=== PATIENT | male | born 1935 | race Caucasian/White ===

== ENCOUNTER 2018-09-14 18:20 | Inpatient (IN) | payer MEDICARE ==
[~2018-09-14] VITALS: Ht 177.8 cm; Wt 86.3 kg
[~2018-09-14 18:20] MED LIST: ACET325 PO; ACETAMINOPHEN650 MG PO; ALBU90OI6 INH; ALBUIS INH; ASCO500 PO; ASPI325 PO; ASPI81CH PO; BISA10S PR; BISA5EC PO; CEPH500 PO; CHOL10002 PO; Cathflo Activase2 MG IJ; Combigan Eye Dro5 ML LEFTEYE; Crestor20 MG PO; DOCU100 PO; ERGO400 PO; EYE DROP LEFTEYE; FISH1000 PO; HYDR1TAB94 PO; IBUP600 PO; LATA.005SO; LATA.005SO LEFTEYE; LORA.5 PO; NICO21TP TD; Nicoderm Cq1 EAC1 TD; OXYACE5T PO; PANT40 PO; PRESERVISION L1 EACH PO; PROBIOTIC1 EAC1 PO; ROSU5 PO; SERT50 PO; Vision Vitamin1 EACH PO; XARELTO10 MG PO
[2018-09-14 19:06] LABS: BASOPHILS ABSOLUTE AUTO 0.02 K/mm3 (0.00-0.23); BASOPHILS PERCENT AUTO 0 % (0-2); EOSINOPHILS ABSOLUTE AUTO 0.17 K/mm3 (0.00-0.68); EOSINOPHILS PERCENT AUTO 1 % (0-6); Hematocrit 22.6 % (37.0-53.0); IMMATURE GRAN ABSOLUTE AUTO 0.37 K/mm3 (0.00-0.10); IMMATURE GRAN PERCENT AUTO 2 % (0-1); LYMPHOCYTES ABSOLUTE AUTO 1.24 K/mm3 (0.84-5.20); LYMPHOCYTES PERCENT AUTO 6 % (21-46); MONOCYTES ABSOLUTE AUTO 1.28 K/mm3 (0.16-1.47); MONOCYTES PERCENT AUTO 6 % (4-13); Mean Corpuscular HGB 19.5 pg (26.0-34.0); Mean Corpuscular HGB Conc 26.5 g/dL (31.5-36.5); Mean Corpuscular Volume 73 fL (80-100); Mean Platelet Volume 10.1 fL (9.1-12.4); NEUTROPHILS ABSOLUTE AUTO 18.37 K/mm3 (1.96-9.15); NEUTROPHILS PERCENT AUTO 86 % (41-73); Platelet Count 609 K/mm3 (150-400); RDW Coefficient Variation 21.8 % (11.7-14.2); RDW Standard Deviation 56.7 fL (35.1-46.3); Red Blood Cell Count 3.08 M/mm3 (4.30-5.90); White Blood Cell Count 21.45 K/mm3 (4.00-11.30)
[2018-09-14 19:18] LABS: Alanine Aminotransfer (ALT/SGP 19 U/L (12-78); Albumin, Blood 2.9 g/dL (3.4-5.0); Albumin/Globulin Ratio 0.7 (0.8-1.8); Alk Phos 141 U/L (50-136); Anion Gap 9 mmol/L (6-16); Aspartate Aminotrans (AST/SGOT 16 U/L (12-37); Bilirubin, Total 0.3 mg/dL (0.1-1.0); Blood Urea Nitrogen 32 mg/dL (8-24); Bun/Creatinine Ratio 29.9 (12.0-20.0); CO2, Blood 18 mmol/L (21-32); Calcium, Blood 8.7 mg/dL (8.5-10.1); Chloride, Blood 115 mmol/L (98-108); Creatinine, Blood 1.07 mg/dL (0.60-1.20); Globulin, Blood 4.2 g/dL (2.2-4.0); Glomerular Filtration Rate >60 (60-); Glucose, Blood 98 mg/dL (70-99); Potassium, Blood 3.9 mmol/L (3.5-5.5); Sodium, Blood 142 mmol/L (136-145); Total Protein, Blood 7.1 g/dL (6.4-8.2)
[2018-09-14 20:25] LABS: IMMATURE RETIC FRACTION 27.2 % (2.3-16.0); RETIC HGB EQUIVALENT 18.1 pg (28.20-36.60); RETICULOCYTE ABSOLUTE 0.0742 M/mm3 (0.0200-0.1100); RETICULOCYTE COUNT PERCENT 2.67 % (0.50-2.50)
[2018-09-14 20:51] LABS: Percent Saturation 2.4 % (20.0-50.0)
[2018-09-14 22:43] LABS: International Normalized Ratio 1.13; Prothrombin Time Results 11.6 Sec (9.7-11.5)
--- NOTE | 2018-09-15 01:00 | NUR ---
TRANSFUSION FIRST UNIT PRBCS FINISHED 003. FLUSHED WITH 60 UNITS NS. NO SIGNS OF REACTION OR ACUTE CHANGES.
[2018-09-15 05:06] LABS: BASOPHILS ABSOLUTE AUTO 0.03 K/mm3 (0.00-0.23); BASOPHILS PERCENT AUTO 0 % (0-2); EOSINOPHILS ABSOLUTE AUTO 0.19 K/mm3 (0.00-0.68); EOSINOPHILS PERCENT AUTO 1 % (0-6); Hematocrit 24.9 % (37.0-53.0); IMMATURE GRAN ABSOLUTE AUTO 0.27 K/mm3 (0.00-0.10); IMMATURE GRAN PERCENT AUTO 2 % (0-1); LYMPHOCYTES ABSOLUTE AUTO 0.99 K/mm3 (0.84-5.20); LYMPHOCYTES PERCENT AUTO 5 % (21-46); MONOCYTES ABSOLUTE AUTO 0.93 K/mm3 (0.16-1.47); MONOCYTES PERCENT AUTO 5 % (4-13); Mean Corpuscular HGB Conc 28.1 g/dL (31.5-36.5); Mean Corpuscular Volume 75 fL (80-100); Mean Platelet Volume 10.2 fL (9.1-12.4); NEUTROPHILS ABSOLUTE AUTO 16.01 K/mm3 (1.96-9.15); NEUTROPHILS PERCENT AUTO 87 % (41-73); Platelet Count 583 K/mm3 (150-400); RDW Coefficient Variation 21.6 % (11.7-14.2); RDW Standard Deviation 56.8 fL (35.1-46.3); Red Blood Cell Count 3.33 M/mm3 (4.30-5.90); White Blood Cell Count 18.42 K/mm3 (4.00-11.30)
[2018-09-15 05:30] LABS: Anion Gap 9 mmol/L (6-16); Blood Urea Nitrogen 27 mg/dL (8-24); Bun/Creatinine Ratio 28.8 (12.0-20.0); CO2, Blood 19 mmol/L (21-32); Calcium, Blood 8.2 mg/dL (8.5-10.1); Chloride, Blood 116 mmol/L (98-108); Creatinine, Blood 0.94 mg/dL (0.60-1.20); Glomerular Filtration Rate >60 (60-); Glucose, Blood 95 mg/dL (70-99); Potassium, Blood 3.8 mmol/L (3.5-5.5); Sodium, Blood 144 mmol/L (136-145)
--- NOTE | 2018-09-15 06:43 | NUR ---
SHIFT SUMMARY PT WAS A NEW ADMIT DURING THE NIGHT. HE IS A 82 YEAR OLD MALE, A&O X 4. HE WAS ADMITTED FOR PNA AND ANEMIA. PER THE PT, HE FELL WHILE AT HOME ON RICHARD RONIT BECAUSE HE "GOT DIZZY". HE C/O R-SIDE RIB PAIN, FOR WHICH HE WAS MEDICATED X1 WITH PRN NORCO. THE PT WAS ALSO FOUND TO HAVE A LOW HG AT 6.0 WHILE IN THE ER. HE RECEIVED 2 UNITS OF PRBCS DURING THE NIGHT. DURING AM LABS AFTER 2 UNITS WERE TRANSFUSED, HG WAS FOUND TO BE 7.O. THE PT DID REPORT SOME SHORTNESS OF BREATH THAT WAS WORSENED WITH EXERTION, WELL A CONGESTED SOUNDING COUGH. THE PT DID NOT PRODUCE ANY SPUTUM. HE ALSO DID NOT GET OUT OF BED DURING THE NIGHT, AND DID NOT HAVE A BOWEL MOVEMENT. PT WAS ON 2L OF O2 ON ADMISSION, AND WAS TAKEN DOWN TO RA. HE IS SITTING BETWEEN 91-92% ON RA. ALL OTHER VITALS REMAINED STABLE. NO OTHER ACUTE CHANGES IN PT CONDITION NOTED. WILL CONTINUE TO MONITOR AND TREAT PER EMAR UNTIL HAND OFF TO DAY SHIFT.
--- NOTE | 2018-09-15 09:00 | NUR ---
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 SEES SOME. A/O CONCERNED ABOUT IN ICU. DENIES PAIN. H/R REG, NO MURMER NOTED. LUNGS COARSE IN BASES AND WHEEZY THOUGHOUT. ON 1L O2. OFTEN SETS ASIDE. RESP EASYK UNLABORED. BT X4 LAST BM 2 DAYS. VOIDS URINAL. BED IN LOW POSITION, CALL LITE IN REACH, CALLS APPROP. 1 SBA ASST TO BATHROOM
--- NOTE | 2018-09-15 10:03 | NUR ---
ZOLOFT APPEARS DUP ORDER. DR ZAVALA AGREES. SAM D/C
--- NOTE | 2018-09-15 16:21 | NUR ---
PT CAME TO VISIT HIS IN ICU 16. STONE SANDBLASTER STATED THAT HE MAY OR MAY NOT DESAT ON ROOM AIR. PLACED PT ON 1L WHILE VISITING . PT'S RN AWARE.
--- NOTE | 2018-09-15 18:24 | NUR ---
PT PLEASANT TODAY, BECAME ANXIOUS WHEN CONCERNED ABOUT HIS IN ICU. DID TRANPORT HIM TO HER ROOM FOR A HALF HOUR VISIT. DID WELL. SHE IS TO BE TRANSFERRED TO ROOM ON MEDICAL THIS RONIT. THIS WILL HELP HIS ANXIETY. DR ORDERING IRON IV AND 1 UNIT BLOOD. BED IN LOW POSITION,, CALL LITE IN REACH, CALLS APPROP
[2018-09-16 05:02] LABS: BASOPHILS ABSOLUTE AUTO 0.02 K/mm3 (0.00-0.23); BASOPHILS PERCENT AUTO 0 % (0-2); EOSINOPHILS ABSOLUTE AUTO 0.14 K/mm3 (0.00-0.68); EOSINOPHILS PERCENT AUTO 1 % (0-6); Hematocrit 26.4 % (37.0-53.0); Hemoglobin 7.7 g/dL (13.5-17.5); IMMATURE GRAN ABSOLUTE AUTO 0.35 K/mm3 (0.00-0.10); IMMATURE GRAN PERCENT AUTO 2 % (0-1); LYMPHOCYTES ABSOLUTE AUTO 1.25 K/mm3 (0.84-5.20); LYMPHOCYTES PERCENT AUTO 8 % (21-46); MONOCYTES ABSOLUTE AUTO 1.17 K/mm3 (0.16-1.47); MONOCYTES PERCENT AUTO 8 % (4-13); Mean Corpuscular HGB 21.6 pg (26.0-34.0); Mean Corpuscular HGB Conc 29.2 g/dL (31.5-36.5); Mean Corpuscular Volume 74 fL (80-100); Mean Platelet Volume 9.8 fL (9.1-12.4); NEUTROPHILS ABSOLUTE AUTO 12.32 K/mm3 (1.96-9.15); NEUTROPHILS PERCENT AUTO 81 % (41-73); NRBC ABSOLUTE 0.04 K/mm3 (0.00-0.02); NRBC Auto 0.3 /100 WBC (0.0-0.2); Platelet Count 522 K/mm3 (150-400); RDW Coefficient Variation 22.5 % (11.7-14.2); RDW Standard Deviation 60.3 fL (35.1-46.3); Red Blood Cell Count 3.56 M/mm3 (4.30-5.90); White Blood Cell Count 15.25 K/mm3 (4.00-11.30)
[2018-09-16 05:28] LABS: Alanine Aminotransfer (ALT/SGP 17 U/L (12-78); Albumin, Blood 2.5 g/dL (3.4-5.0); Albumin/Globulin Ratio 0.6 (0.8-1.8); Anion Gap 9 mmol/L (6-16); Aspartate Aminotrans (AST/SGOT 16 U/L (12-37); Bilirubin, Total 0.5 mg/dL (0.1-1.0); Blood Urea Nitrogen 18 mg/dL (8-24); Bun/Creatinine Ratio 19.7 (12.0-20.0); CO2, Blood 21 mmol/L (21-32); Calcium, Blood 8.2 mg/dL (8.5-10.1); Chloride, Blood 114 mmol/L (98-108); Creatinine, Blood 0.91 mg/dL (0.60-1.20); Glomerular Filtration Rate >60 (60-); Glucose, Blood 106 mg/dL (70-99); Magnesium, Blood 2.1 mg/dL (1.6-2.4); Potassium, Blood 3.7 mmol/L (3.5-5.5); Sodium, Blood 144 mmol/L (136-145); Total Protein, Blood 6.5 g/dL (6.4-8.2)
[2018-09-16 05:29] LABS: Alk Phos 147 U/L (50-136)
--- NOTE | 2018-09-16 05:50 | NUR ---
SHIFT SUMMARY PT LYING LF, VISITING WITH FAMILY DURING SHIFT REPORT. EYE DROPS BROUGHT IN BY FAMILY FOR MACULAR DEGENERATION. PT ADMITTED FOR PNM R/T FALL AT HOME INJURING RIBS AND NOT BREATHING EFFECTIVELY. PT FOUND WITH ANEMIA AND WAS GIVEN BLOOD PER ORDERS. DR CORTEZ CONSULTED AND SEEN PT AT LAST NIGHT. NO NEW ORDERS FOLLOWED AT THAT TIME. GUIAC ORDER ON CHART, BUT PT HAS NOT HAD BM YET, SINCE ADMISSION. PT RECEIVING IV ABX FOR PNM. LUNGS T/O WITH EXP WHEEZES WITH PC. SPUTUM CX SENT, BUT LATER REPORTED CONTAMINATED BY LAB. NEW CX TO BE OBTAINED. PT RESTING QUIETLY TILL THIS AM, WANTING TO GET UP AND GO FOR A WALK ON HIS OWN. PT WEAK, UNSTEADY AND BLIND, REQUIRING ASSIST. PT TO WALK WITH STAFF WHEN AVAILABLE. CALL LT IN REACH.
--- NOTE | 2018-09-16 06:50 | NUR ---
0630 PT WALKED IN RM AND OUT TO RAO A SHORT DISTANCE, BEFORE GOING BACK TO RM. PT THEN SITTING UP TO EOB AFTER RETURNING. PT REPORTED "THAT SURE FELT GOOD". TOLERATED WELL W/O O2 PER PT REQUEST.
--- NOTE | 2018-09-16 18:42 | NUR ---
PATIENT RECEIVED 1 UNIT OF BLOOD TODAY. FAMILY AT BEDSIDE, FAMILY TOOK PATIENT TO SEE FOR A SHORT TIME. PATIENT ABLE TO TRANSFER WITH A STANDBY ASSIST TO THE WHEELCHAIR OR COMMODE. PLEASANT MOOD AND COOPERATIVE WITH CARE. CALL LIGHT IN REACH
--- NOTE | 2018-09-16 22:00 | NUR ---
BEDSIDE REPORT GIVEN TO MISA SALGADO.
[2018-09-17 04:55] LABS: Hematocrit 28.4 % (37.0-53.0); Hemoglobin 8.3 g/dL (13.5-17.5); Mean Corpuscular HGB Conc 29.2 g/dL (31.5-36.5); Mean Corpuscular Volume 75 fL (80-100); Mean Platelet Volume 9.9 fL (9.1-12.4); NRBC ABSOLUTE 0.02 K/mm3 (0.00-0.02); NRBC Auto 0.2 /100 WBC (0.0-0.2); Platelet Count 484 K/mm3 (150-400); RDW Coefficient Variation 22.9 % (11.7-14.2); RDW Standard Deviation 61.4 fL (35.1-46.3); Red Blood Cell Count 3.77 M/mm3 (4.30-5.90); White Blood Cell Count 10.16 K/mm3 (4.00-11.30)
[2018-09-17 05:21] LABS: Anion Gap 10 mmol/L (6-16); Blood Urea Nitrogen 15 mg/dL (8-24); CO2, Blood 21 mmol/L (21-32); Calcium, Blood 8.3 mg/dL (8.5-10.1); Chloride, Blood 113 mmol/L (98-108); Creatinine, Blood 0.84 mg/dL (0.60-1.20); Glomerular Filtration Rate >60 (60-); Glucose, Blood 101 mg/dL (70-99); Potassium, Blood 3.8 mmol/L (3.5-5.5); Sodium, Blood 144 mmol/L (136-145)
[2018-09-17 05:36] LABS: BAND PERCENT MAN 1 % (0-8); BASOPHILS PERCENT MAN 0 % (0-2); EOSINOPHILS PERCENT MAN 5 % (0-6); LYMPHOCYTES ABSOLUTE MAN 1.11 K/mm3 (0.84-5.20); LYMPHOCYTES PERCENT MAN 11 % (21-46); MONOCYTES ABSOLUTE MAN 0.71 K/mm3 (0.16-1.47); MONOCYTES PERCENT MAN 7 % (4-13); NEUTROPHILS ABSOLUTE MAN 7.82 K/mm3 (1.96-9.15); SEG NEUTROPHILS PERCENT MAN 76 % (41-73); TOTAL CELLS COUNTED 100
--- NOTE | 2018-09-17 05:41 | NUR ---
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 2L O2 NC. SCD'S IN PLACE. LUNGS WHEEZY. HE WAS ABLE TO SLEEP ON AND OFF T/O NIGHT. USES URINAL IN BED. CALL LIGHT IN REACH
[2018-09-17 14:14] LABS: Stool Occult Blood Guaiac 1 Pos (Neg)
--- NOTE | 2018-09-17 19:19 | NUR ---
NO ACUTE CHANGES THIS SHIFT. PATIENT UP TO CHAIR WITH A STANDBY ASSIST. VISITED WITH FAMILY AND THIS AFTERNOON. TYLENOL ORDERED FOR MILD FEVER. PATIENT USING A URINAL TO URINATE. CALL LIGHT IN REACH, WILL CONTINUE TO MONITOR.
--- NOTE | 2018-09-18 04:16 | NUR ---
SHIFT SUMMARY: PT IS ALERT AND ORIENTED. PT IS CALM AND COOPERATIVE WITH CARE. PT CALLS APPROPRIATELY. PT IS A ONE PERSON ASSIST TO THE BATHROOM. PT REPORTS BACK PAIN, GAVE PRN OXYCODONE. PT DENIES NAUSEA, VOMITING, AND SOB. PT SLEPT INTERMITTENTLY THROUGHOUT THE NIGHT. NO ACUTE CHANGES OR COMPLICATIONS THIS SHIFT. WILL REPORT TO DAY NURSE.
[2018-09-18 05:17] LABS: Hematocrit 28.7 % (37.0-53.0); Hemoglobin 8.3 g/dL (13.5-17.5); Mean Corpuscular HGB 22.2 pg (26.0-34.0); Mean Corpuscular HGB Conc 28.9 g/dL (31.5-36.5); Mean Corpuscular Volume 77 fL (80-100); Platelet Count 472 K/mm3 (150-400); RDW Coefficient Variation 24.1 % (11.7-14.2); RDW Standard Deviation 64.9 fL (35.1-46.3); Red Blood Cell Count 3.74 M/mm3 (4.30-5.90); White Blood Cell Count 9.64 K/mm3 (4.00-11.30)
[2018-09-18 05:32] LABS: Alanine Aminotransfer (ALT/SGP 24 U/L (12-78); Albumin, Blood 2.3 g/dL (3.4-5.0); Albumin/Globulin Ratio 0.6 (0.8-1.8); Alk Phos 150 U/L (50-136); Anion Gap 9 mmol/L (6-16); Aspartate Aminotrans (AST/SGOT 25 U/L (12-37); Bilirubin, Total 0.4 mg/dL (0.1-1.0); Blood Urea Nitrogen 15 mg/dL (8-24); Bun/Creatinine Ratio 16.2 (12.0-20.0); CO2, Blood 22 mmol/L (21-32); Calcium, Blood 8.1 mg/dL (8.5-10.1); Chloride, Blood 113 mmol/L (98-108); Creatinine, Blood 0.93 mg/dL (0.60-1.20); Glomerular Filtration Rate >60 (60-); Glucose, Blood 101 mg/dL (70-99); Potassium, Blood 3.8 mmol/L (3.5-5.5); Sodium, Blood 144 mmol/L (136-145); Total Protein, Blood 6.3 g/dL (6.4-8.2)
[2018-09-18 05:46] LABS: BAND PERCENT MAN 1 % (0-8); BASOPHILS PERCENT MAN 0 % (0-2); EOSINOPHILS ABSOLUTE MAN 0.48 K/mm3 (0.00-0.68); EOSINOPHILS PERCENT MAN 5 % (0-6); LYMPHOCYTES ABSOLUTE MAN 2.02 K/mm3 (0.84-5.20); LYMPHOCYTES PERCENT MAN 21 % (21-46); METAMYELOCYTE ABSOLUTE MAN 0.09 K/mm3 (0.00-0.00); METAMYELOCYTE PERCENT MAN 1 % (0-0); MONOCYTES ABSOLUTE MAN 0.86 K/mm3 (0.16-1.47); MONOCYTES PERCENT MAN 9 % (4-13); MYELOCYTE ABSOLUTE MAN 0.09 K/mm3 (0.00-0.00); MYELOCYTE PERCENT MAN 1 % (0-0); NEUTROPHILS ABSOLUTE MAN 6.07 K/mm3 (1.96-9.15); SEG NEUTROPHILS PERCENT MAN 62 % (41-73); TOTAL CELLS COUNTED 100
--- NOTE | 2018-09-18 18:14 | NUR ---
PT IS A/OX3, PLEASANT AND COOPERATIVE, PT IS UP WITH MINIMAL ASSIST. THIS AM THE PTS O2 SATURATION WAS IN THE 80'S PER RT, OXYGEN WAS APPLIED @ 2L/MIN VIA NC, THE PT DENIED ANY PAIN SO FAR THIS SHIFT, DENIED ANY EMISIS OR BLOODY STOOL, THE PT HAS VERY COURSE LUNG SOUNDS AND WHEEZES HEARD T/O, THE PT HAD MULTIPLE VISITORS T/O THE DAY,BED IN THE LOW POSITION, CALL LIGHT IN REACH
--- NOTE | 2018-09-19 04:37 | NUR ---
SHIFT SUMMARY: PT IS ALERT AND ORIENTED. PT IS CALM AND COOPERATIVE WITH CARE. PT CALLS APPROPRIATELY. PT IS A ONE PERSON ASSIST TO THE BATHROOM. PT UNDERWENT SLEEP STUDY. PT DENIES PAIN, NAUSEA, VOMITING, AND SOB. LUNG SOUNDS IMPROVED SINCE PREVIOUS SHIFT. BED IN LOW POSITION, CALL LIGHT WITHIN REACH. WILL REPORT TO DAY NURSE.
[2018-09-19 05:12] LABS: Hematocrit 29.6 % (37.0-53.0); Hemoglobin 8.5 g/dL (13.5-17.5); Mean Corpuscular HGB 22.4 pg (26.0-34.0); Mean Corpuscular HGB Conc 28.7 g/dL (31.5-36.5); Mean Corpuscular Volume 78 fL (80-100); Mean Platelet Volume 9.9 fL (9.1-12.4); Platelet Count 464 K/mm3 (150-400); RDW Coefficient Variation 25.4 % (11.7-14.2); RDW Standard Deviation 68.8 fL (35.1-46.3); White Blood Cell Count 12.16 K/mm3 (4.00-11.30)
[2018-09-19 05:36] LABS: Alanine Aminotransfer (ALT/SGP 34 U/L (12-78); Albumin, Blood 2.3 g/dL (3.4-5.0); Albumin/Globulin Ratio 0.6 (0.8-1.8); Alk Phos 142 U/L (50-136); Anion Gap 8 mmol/L (6-16); Aspartate Aminotrans (AST/SGOT 36 U/L (12-37); Bilirubin, Total 0.4 mg/dL (0.1-1.0); Blood Urea Nitrogen 13 mg/dL (8-24); Bun/Creatinine Ratio 14.3 (12.0-20.0); CO2, Blood 22 mmol/L (21-32); Chloride, Blood 112 mmol/L (98-108); Creatinine, Blood 0.91 mg/dL (0.60-1.20); Glomerular Filtration Rate >60 (60-); Glucose, Blood 96 mg/dL (70-99); Sodium, Blood 142 mmol/L (136-145); Total Protein, Blood 6.3 g/dL (6.4-8.2)
[2018-09-19 05:44] LABS: BAND PERCENT MAN 1 % (0-8); BASOPHILS PERCENT MAN 0 % (0-2); EOSINOPHILS PERCENT MAN 5 % (0-6); LYMPHOCYTES ABSOLUTE MAN 1.33 K/mm3 (0.84-5.20); LYMPHOCYTES PERCENT MAN 11 % (21-46); METAMYELOCYTE ABSOLUTE MAN 0.12 K/mm3 (0.00-0.00); METAMYELOCYTE PERCENT MAN 1 % (0-0); MONOCYTES PERCENT MAN 5 % (4-13); MYELOCYTE ABSOLUTE MAN 0.12 K/mm3 (0.00-0.00); MYELOCYTE PERCENT MAN 1 % (0-0); NEUTROPHILS ABSOLUTE MAN 9.36 K/mm3 (1.96-9.15); SEG NEUTROPHILS PERCENT MAN 76 % (41-73); TOTAL CELLS COUNTED 100
--- NOTE | 2018-09-19 15:59 | NUR ---
PT IS A/OX3, PLEASANT AND COOPERATIVE, THE PT IS UP WITH MINIMAL ASSIST, TODAY THE PT WAS UP AND AMBULATED IN THE RAO USING THE FWW APPROPRITALY, MILDY SOB WITH EXCERTION, O2 ON @ 2L/MIN, PT WAS MEDICATED FOR BACK PAIN X1 HE REQUESTED SO FAR TODAY, MULTIPLE FAMILY IN TO SEE THE PT, CALL LIGHT IN REACH, BED IN THE LOW POSITION
--- NOTE | 2018-09-20 04:06 | NUR ---
SHIFT SUMMARY: PT IS ALERT AND ORIENTED WITH INTERMITTENT, MINOR CONFUSION. PT IS CALM AND COOPERATIVE WITH CARE. PT CALLS APPROPRIATELY. PT IS A ONE PERSON ASSIST TO THE BATHROOM, USES THE URINAL INDEPENDENTLY IN BED. FAMILY IN VISITING AT THE START OF SHIFT. PT DENIES PAIN, NAUSEA, VOMITING, AND SOB. NO ACUTE CHANGES OR COMPLICATIONS OVERNIGHT. WILL REPORT TO DAY NURSE.
[2018-09-20 05:21] LABS: Hematocrit 29.8 % (37.0-53.0); Hemoglobin 8.7 g/dL (13.5-17.5); Mean Corpuscular HGB 22.4 pg (26.0-34.0); Mean Corpuscular HGB Conc 29.2 g/dL (31.5-36.5); Mean Corpuscular Volume 77 fL (80-100); Mean Platelet Volume 10.5 fL (9.1-12.4); Platelet Count 513 K/mm3 (150-400); RDW Coefficient Variation 26.1 % (11.7-14.2); RDW Standard Deviation 69.7 fL (35.1-46.3); Red Blood Cell Count 3.89 M/mm3 (4.30-5.90); White Blood Cell Count 12.15 K/mm3 (4.00-11.30)
[2018-09-20 05:36] LABS: Alanine Aminotransfer (ALT/SGP 45 U/L (12-78); Albumin, Blood 2.3 g/dL (3.4-5.0); Albumin/Globulin Ratio 0.6 (0.8-1.8); Alk Phos 141 U/L (50-136); Anion Gap 7 mmol/L (6-16); Aspartate Aminotrans (AST/SGOT 39 U/L (12-37); Bilirubin, Total 0.5 mg/dL (0.1-1.0); Blood Urea Nitrogen 12 mg/dL (8-24); Bun/Creatinine Ratio 13.2 (12.0-20.0); CO2, Blood 23 mmol/L (21-32); Calcium, Blood 8.1 mg/dL (8.5-10.1); Chloride, Blood 110 mmol/L (98-108); Creatinine, Blood 0.91 mg/dL (0.60-1.20); Globulin, Blood 4.1 g/dL (2.2-4.0); Glomerular Filtration Rate >60 (60-); Glucose, Blood 101 mg/dL (70-99); Sodium, Blood 140 mmol/L (136-145); Total Protein, Blood 6.4 g/dL (6.4-8.2)
[2018-09-20 06:14] LABS: BAND PERCENT MAN 2 % (0-8); BASOPHILS PERCENT MAN 0 % (0-2); EOSINOPHILS ABSOLUTE MAN 0.24 K/mm3 (0.00-0.68); EOSINOPHILS PERCENT MAN 2 % (0-6); LYMPHOCYTES % ATYPICAL MANUAL 1 % (0-0); LYMPHOCYTES ABSOLUTE MAN 1.57 K/mm3 (0.84-5.20); LYMPHOCYTES PERCENT MAN 12 % (21-46); METAMYELOCYTE ABSOLUTE MAN 0.12 K/mm3 (0.00-0.00); METAMYELOCYTE PERCENT MAN 1 % (0-0); MONOCYTES ABSOLUTE MAN 0.48 K/mm3 (0.16-1.47); MONOCYTES PERCENT MAN 4 % (4-13); MYELOCYTE ABSOLUTE MAN 0.24 K/mm3 (0.00-0.00); MYELOCYTE PERCENT MAN 2 % (0-0); NEUTROPHILS ABSOLUTE MAN 9.47 K/mm3 (1.96-9.15); SEG NEUTROPHILS PERCENT MAN 76 % (41-73); TOTAL CELLS COUNTED 100
--- NOTE | 2018-09-20 18:30 | NUR ---
NO ACUTE CHANGES NOTED THIS SHIFT, NO C/O PAIN, SOB NOTED WITH EXERTION/AMBULATION TO BR. WILL CONTINUE TO MONITOR AND REPORT TO ONCOMING RN.
[2018-09-21 04:53] LABS: BASOPHILS ABSOLUTE AUTO 0.03 K/mm3 (0.00-0.23); BASOPHILS PERCENT AUTO 0 % (0-2); EOSINOPHILS PERCENT AUTO 1 % (0-6); Hematocrit 30.5 % (37.0-53.0); Hemoglobin 8.8 g/dL (13.5-17.5); IMMATURE GRAN ABSOLUTE AUTO 0.71 K/mm3 (0.00-0.10); IMMATURE GRAN PERCENT AUTO 6 % (0-1); LYMPHOCYTES ABSOLUTE AUTO 1.43 K/mm3 (0.84-5.20); LYMPHOCYTES PERCENT AUTO 11 % (21-46); MONOCYTES ABSOLUTE AUTO 0.84 K/mm3 (0.16-1.47); MONOCYTES PERCENT AUTO 7 % (4-13); Mean Corpuscular HGB Conc 28.9 g/dL (31.5-36.5); Mean Corpuscular Volume 80 fL (80-100); Mean Platelet Volume 10.4 fL (9.1-12.4); NEUTROPHILS PERCENT AUTO 76 % (41-73); Platelet Count 488 K/mm3 (150-400); RDW Coefficient Variation 26.8 % (11.7-14.2); RDW Standard Deviation 74.2 fL (35.1-46.3); Red Blood Cell Count 3.82 M/mm3 (4.30-5.90); White Blood Cell Count 12.71 K/mm3 (4.00-11.30)
[2018-09-21 05:11] LABS: Alanine Aminotransfer (ALT/SGP 35 U/L (12-78); Albumin, Blood 2.4 g/dL (3.4-5.0); Albumin/Globulin Ratio 0.6 (0.8-1.8); Alk Phos 130 U/L (50-136); Anion Gap 7 mmol/L (6-16); Aspartate Aminotrans (AST/SGOT 27 U/L (12-37); Bilirubin, Total 0.4 mg/dL (0.1-1.0); Blood Urea Nitrogen 14 mg/dL (8-24); Bun/Creatinine Ratio 15.9 (12.0-20.0); CO2, Blood 23 mmol/L (21-32); Calcium, Blood 8.2 mg/dL (8.5-10.1); Chloride, Blood 112 mmol/L (98-108); Creatinine, Blood 0.88 mg/dL (0.60-1.20); Glomerular Filtration Rate >60 (60-); Glucose, Blood 103 mg/dL (70-99); Potassium, Blood 3.9 mmol/L (3.5-5.5); Sodium, Blood 142 mmol/L (136-145); Total Protein, Blood 6.4 g/dL (6.4-8.2)
[2018-09-21 05:16] LABS: BAND PERCENT MAN 2 % (0-8); BASOPHILS PERCENT MAN 0 % (0-2); EOSINOPHILS PERCENT MAN 0 % (0-6); LYMPHOCYTES ABSOLUTE MAN 1.52 K/mm3 (0.84-5.20); LYMPHOCYTES PERCENT MAN 12 % (21-46); MONOCYTES ABSOLUTE MAN 0.63 K/mm3 (0.16-1.47); MONOCYTES PERCENT MAN 5 % (4-13); MYELOCYTE ABSOLUTE MAN 0.12 K/mm3 (0.00-0.00); MYELOCYTE PERCENT MAN 1 % (0-0); NEUTROPHILS ABSOLUTE MAN 10.42 K/mm3 (1.96-9.15); SEG NEUTROPHILS PERCENT MAN 80 % (41-73); TOTAL CELLS COUNTED 100
--- NOTE | 2018-09-21 06:05 | NUR ---
TANK FILLER SUMMARY NO ACUTE CHANGES THIS SHIFT. PT AAOX4 AND COOPERATIVE WITH CARE. PLEASANT. PT LUNGS COARSE/DIM BUT PT DENIES SOB. REMAINS ON 2L O2 VIA NC, SATTING IN LOW 90'S. DR CORTEZ SAW PT AT START OF SHIFT. DR CORTEZ STATED TO PT THAT ONCE PNA IS MORE MANAGED THEY CAN MOVE FORWARD WITH UPPER/LOWER SCOPE. PT DENIES PAIN. VSS, WILL CONTINUE TO MONITOR.
--- NOTE | 2018-09-21 18:12 | NUR ---
NO ACUTE CHANGES NOTED THIS SHIFT, PT ON AND OFF O2, DR CORTEZ WAITING FOR RESP STATUS TO IMPROVE ENOUGH FOR PROCEDURE. PT IS LEGALLY BLIND, NEEDS ASSITANCE FROM RN/COMMUNITY PRODUCT SPECIALIST WITH FILLING OUT HIS MENUS IN THE MORNINGS. WILL CONTINUE TO MONITOR AND REPORT TO ONCOMING RN
--- NOTE | 2018-09-22 06:19 | NUR ---
INTRAOPERATIVE NEURO TECH SUMMARY NO ACUTE CHANGES THIS SHIFT. PT AAOX4 AND COOPERATIVE WITH CARE. STANDBY ASSIST TO BATHROOM, HOWEVER PT MAINLY USES URINAL AT BEDSIDE. PT NOW HAS ALL 4 OF HIS EYE DROPS ORDERED AND RECIEVED THEM AT BEDTIME. REMAINS ON 2L O2 VIA NC, SATTING IN THE 90'S. DENIES PAIN, SOB, AND N/V. VSS, WILL CONTINUE TO MONITOR.
--- NOTE | 2018-09-22 09:33 | NUR ---
ALL AM MEDS GIVEN AT 0900 BY CHRISTAL MCKNIGHT RN. MEDS SCANNED BUT WOULD NOT ALLOW HER TO SUBMIT DUE TO NOT HAVING ESTABLISHED PIN YET. MEDS WERE VERIFIED GIVEN BY THIS RN.
[2018-09-22] MEDS ORDERED: Prednisolone Ace5 ML LEFTEYE (13:31)
[2018-09-22] MEDS ORDERED: DORZOPSO LEFTEYE (13:31)
[2018-09-22] MEDS ORDERED: Istalol2.5 ML LEFTEYE (13:32)
[2018-09-22] MEDS ORDERED: PRESERVISION A1 EACH PO (13:33)
[2018-09-22] MEDS ORDERED: Systane 0.3-0.415 ML BOTHEYES (13:33)
--- NOTE | 2018-09-22 17:02 | NUR ---
SHIFT SUMMARY PATIENT IS ALERT AND ORIENTED X3 AND COOPERATIVE WITH CARE. PATIENT IS A ONE PERSON ASSIST TO THE BATHROOM WITH A FWW, USES URINAL IN BED. PATIENT WAS TITRATED TO RA TODAY. LUNG SOUNDS ARE DIMINISHED AND WHEEZING WITH A PRODUCTIVE COUGH. THE PLAN IS TO TRANSFER THE PATIENT TO [facility] ONCE A BED BECOMES AVAILABLE, HOPEFULLY TOMORROW. PATIENT HAS BEEN USING THE FLUTTER DEVICE AND INSCENTIVE SPIROMETER WITH ASSISTANCE AND ALONE.
[2018-09-23 05:23] LABS: Hematocrit 33.8 % (37.0-53.0); Hemoglobin 9.6 g/dL (13.5-17.5); Mean Corpuscular HGB 22.3 pg (26.0-34.0); Mean Corpuscular HGB Conc 28.4 g/dL (31.5-36.5); Mean Corpuscular Volume 78 fL (80-100); Mean Platelet Volume 10.5 fL (9.1-12.4); Platelet Count 702 K/mm3 (150-400); RDW Coefficient Variation 27.8 % (11.7-14.2); RDW Standard Deviation 76.5 fL (35.1-46.3); Red Blood Cell Count 4.31 M/mm3 (4.30-5.90); White Blood Cell Count 11.95 K/mm3 (4.00-11.30)
[2018-09-23 05:44] LABS: Anion Gap 6 mmol/L (6-16); BAND PERCENT MAN 3 % (0-8); BASOPHILS PERCENT MAN 0 % (0-2); Blood Urea Nitrogen 18 mg/dL (8-24); CO2, Blood 24 mmol/L (21-32); Calcium, Blood 8.2 mg/dL (8.5-10.1); Chloride, Blood 110 mmol/L (98-108); EOSINOPHILS PERCENT MAN 0 % (0-6); Glomerular Filtration Rate >60 (60-); Glucose, Blood 88 mg/dL (70-99); LYMPHOCYTES ABSOLUTE MAN 1.91 K/mm3 (0.84-5.20); LYMPHOCYTES PERCENT MAN 16 % (21-46); MONOCYTES ABSOLUTE MAN 0.83 K/mm3 (0.16-1.47); MONOCYTES PERCENT MAN 7 % (4-13); MYELOCYTE ABSOLUTE MAN 0.11 K/mm3 (0.00-0.00); MYELOCYTE PERCENT MAN 1 % (0-0); NEUTROPHILS ABSOLUTE MAN 9.08 K/mm3 (1.96-9.15); SEG NEUTROPHILS PERCENT MAN 73 % (41-73); Sodium, Blood 140 mmol/L (136-145); TOTAL CELLS COUNTED 100
--- NOTE | 2018-09-23 06:08 | NUR ---
SHIFT SUMMARY PT PLEASANT AND COOPERATIVE. REMAINED ON RA THROUGHOUT THE NIGHT WITH O2 SATS IN THE LOW 90'S. MINIMAL NON PRODUCTIVE COUGH. LUNG SOUNDS DIMINISHED. NO COMPLAINTS OF PAIN. SLEPT WELL THROUGH MOST OF THE NIGHT. NO ACUTE CHANGES. VSS. WILL CONTINUE TO MONITOR.
[2018-09-23] MEDS ORDERED: Ferrous Sulfat325 M2 PO (12:56)
[2018-09-23] MEDS ORDERED: TIOT18 INH (12:56)
[2018-09-23] MEDS ORDERED: OCUVITE EYE +1 EACH PO (12:56)
[2018-09-23] MEDS ORDERED: GUAI600T33 PO (12:56)
[2018-09-23] MEDS ORDERED: OMEPRAZOLE MAGN20 MG PO (12:57)
--- NOTE | 2018-09-23 13:03 | NUR ---
PATIENT AWAITING DISCHARGE TO SNF. POSSIBLY TOMORROW, 09-24-18.
--- NOTE | 2018-09-23 17:52 | NUR ---
SHIFT SUMMARY PATIENT IS COOPERATIVE WITH CARE. HE HAS USED HIS INSCENTIVE SPIROMETER AND FLUTTWER DEVICE TWICE TODAY WITH THE NURSE. THE PLAN IS TO TRANSFER THE PATIENT TO [facility] TOMORROW IF A BED IS AVAILABLE. NO ACUTE CHANGES THIS SHIFT. WILL CONTINUE TO MONITOR PATIENT.
[2018-09-24 05:08] LABS: BASOPHILS ABSOLUTE AUTO 0.03 K/mm3 (0.00-0.23); BASOPHILS PERCENT AUTO 0 % (0-2); EOSINOPHILS ABSOLUTE AUTO 0.16 K/mm3 (0.00-0.68); EOSINOPHILS PERCENT AUTO 1 % (0-6); Hemoglobin 9.4 g/dL (13.5-17.5); IMMATURE GRAN ABSOLUTE AUTO 0.23 K/mm3 (0.00-0.10); IMMATURE GRAN PERCENT AUTO 2 % (0-1); LYMPHOCYTES ABSOLUTE AUTO 1.52 K/mm3 (0.84-5.20); LYMPHOCYTES PERCENT AUTO 13 % (21-46); MONOCYTES ABSOLUTE AUTO 0.95 K/mm3 (0.16-1.47); MONOCYTES PERCENT AUTO 8 % (4-13); Mean Corpuscular HGB 22.2 pg (26.0-34.0); Mean Corpuscular HGB Conc 28.5 g/dL (31.5-36.5); Mean Corpuscular Volume 78 fL (80-100); Mean Platelet Volume 10.7 fL (9.1-12.4); NEUTROPHILS ABSOLUTE AUTO 8.54 K/mm3 (1.96-9.15); NEUTROPHILS PERCENT AUTO 75 % (41-73); Platelet Count 727 K/mm3 (150-400); RDW Coefficient Variation 27.9 % (11.7-14.2); RDW Standard Deviation 75.7 fL (35.1-46.3); Red Blood Cell Count 4.23 M/mm3 (4.30-5.90); White Blood Cell Count 11.43 K/mm3 (4.00-11.30)
--- NOTE | 2018-09-24 06:04 | NUR ---
SHIFT SUMMARY PT IS 82 Y/O, ADMITTED FOR PNEUMONIA. HE IS A&O X 3, THOUGH FORGETFUL AT TIMES, AND ABLE TO AMBULATE SBA WITH A CANE. HE DENIED ANY COMPLAINTS OF PAIN, NAUSEA OR SHORTNESS OF BREATH. VITAL SIGNS STABLE. NO ACUTE CHANGES IN PT CONDITION. WILL CONTINUE TO MONITOR AND TREAT PER EMAR UNTIL HAND OFF TO DAY SHIFT.
--- NOTE | 2018-09-24 15:58 | NUR ---
DISCHARGE THIS RN CALLED REPORT TO M[facility] AT [facility]. PT TRANSFERRED TO WHEELCHAIR VAN VIA WHEELCHAIR BY [facility] MANAGER RECRUITMENT. PT'S BELONGINGS WITH PT. IV REMOVED WITHOUT DIFFICULTY.
== END 2018-09-24 15:10 | DRG 193 ==
LOC: DELPENDDIS → ER 18:20 → MEDS 22:18 → ENPENDDIS 09-23 12:51 → MEDS 09-24 15:10
PROVIDERS: Emergency Medicine; Family Medicine; Hospitalist; ADMIT Internal Medicine
PROC: 30233N1 Transfusion of Nonautologous Red Blood Cells into Peripheral Vein, Percutaneous Approach (ICD-10-PCS; principal; 2018-09-15)
DX: J18.9 Pneumonia, unspecified organism (principal); J96.21 Acute and chronic respiratory failure with hypoxia; S22.43XA Multiple fractures of ribs, bilateral, initial encounter for closed fracture; S22.060A Wedge compression fracture of T7-T8 vertebra, initial encounter for closed fracture; D62 Acute posthemorrhagic anemia; D50.9 Iron deficiency anemia, unspecified; I25.10 Atherosclerotic heart disease of native coronary artery without angina pectoris; E78.5 Hyperlipidemia, unspecified; L40.9 Psoriasis, unspecified; H35.30 Unspecified macular degeneration; Z95.5 Presence of coronary angioplasty implant and graft; F17.210 Nicotine dependence, cigarettes, uncomplicated; W19.XXXA Unspecified fall, initial encounter; Y92.002 Bathroom of unspecified non-institutional (private) residence as the place of occurrence of the external cause; Z79.82 Long term (current) use of aspirin; H54.40 Blindness, one eye, unspecified eye; Z66 Do not resuscitate; J43.9 Emphysema, unspecified; I25.2 Old myocardial infarction; I10 Essential (primary) hypertension; M51.36 Other intervertebral disc degeneration, lumbar region; D47.3 Essential (hemorrhagic) thrombocythemia
CPT/HCPCS: 36415; 36430; 71046; 71260; 74177; 80048; 80053; 82272; 82607; 82728; 82746; 83540; 83550; 83605; 83735; 84100; 85025; 85045; 85610; 85730; 86850; 86900; 86901; 86923; 87040; 87070; 87205; 93005; 93010; 94640; 94667; 94760; 94762; 96365; 96375; 97110; 97116; 97162; 97165; 97530; 99285-25; C9113; J0456; J0696; J2916; J2920; J7030; J7050; P9016; Q9967

== ENCOUNTER 2018-10-15 11:00 | Emergency (ER) | payer MEDICARE ==
[~2018-10-15] VITALS: Ht 177.8 cm; Wt 80.3 kg
[~2018-10-15 11:00] MED LIST changes: +DORZOPSO LEFTEYE; +Ferrous Sulfat325 M2 PO; +GUAI600T33 PO; +Istalol2.5 ML LEFTEYE; +OCUVITE EYE +1 EACH PO; +OMEPRAZOLE MAGN20 MG PO; +PRESERVISION A1 EACH PO; +Prednisolone Ace5 ML LEFTEYE; +Systane 0.3-0.415 ML BOTHEYES; +TIOT18 INH
[2018-10-15 11:25] LABS: BASOPHILS ABSOLUTE AUTO 0.01 K/mm3 (0.00-0.23); BASOPHILS PERCENT AUTO 0 % (0-2); EOSINOPHILS ABSOLUTE AUTO 0.48 K/mm3 (0.00-0.68); EOSINOPHILS PERCENT AUTO 6 % (0-6); Hematocrit 38.4 % (37.0-53.0); Hemoglobin 11.4 g/dL (13.5-17.5); IMMATURE GRAN ABSOLUTE AUTO 0.05 K/mm3 (0.00-0.10); IMMATURE GRAN PERCENT AUTO 1 % (0-1); LYMPHOCYTES ABSOLUTE AUTO 1.79 K/mm3 (0.84-5.20); LYMPHOCYTES PERCENT AUTO 21 % (21-46); MONOCYTES ABSOLUTE AUTO 0.81 K/mm3 (0.16-1.47); MONOCYTES PERCENT AUTO 10 % (4-13); Mean Corpuscular HGB 23.9 pg (26.0-34.0); Mean Corpuscular HGB Conc 29.7 g/dL (31.5-36.5); Mean Corpuscular Volume 81 fL (80-100); Mean Platelet Volume 10.1 fL (9.1-12.4); NEUTROPHILS PERCENT AUTO 63 % (41-73); Platelet Count 525 K/mm3 (150-400); RDW Standard Deviation 74.9 fL (35.1-46.3); Red Blood Cell Count 4.76 M/mm3 (4.30-5.90); White Blood Cell Count 8.44 K/mm3 (4.00-11.30)
[2018-10-15] MEDS ORDERED: TIOT18 INH (11:26)
[2018-10-15] MEDS ORDERED: Xalatan2.5 ML BOTHEYES (11:26)
[2018-10-15] MEDS ORDERED: TIMO10T (11:28)
[2018-10-15] MEDS ORDERED: DORZOLAMIDE 2%10 ML (11:29)
[2018-10-15] MEDS ORDERED: MIDO5 (11:29)
[2018-10-15 11:41] LABS: Anion Gap 7 mmol/L (6-16); Blood Urea Nitrogen 19 mg/dL (8-24); Bun/Creatinine Ratio 18.8 (12.0-20.0); CO2, Blood 23 mmol/L (21-32); Calcium, Blood 8.2 mg/dL (8.5-10.1); Chloride, Blood 111 mmol/L (98-108); Creatinine, Blood 1.01 mg/dL (0.60-1.20); Glomerular Filtration Rate >60 (60-); Glucose, Blood 75 mg/dL (70-99); Potassium, Blood 3.7 mmol/L (3.5-5.5); Sodium, Blood 141 mmol/L (136-145); Troponin I <0.015 ng/mL (0.000-0.040)
== END 2018-10-15 13:21 | disposition home or self-care (01) ==
LOC: ER 11:00
PROVIDERS: Emergency Medicine
DX: I95.1 Orthostatic hypotension (principal); E78.5 Hyperlipidemia, unspecified; I25.10 Atherosclerotic heart disease of native coronary artery without angina pectoris; I25.2 Old myocardial infarction; Z91.040 Latex allergy status; Z88.8 Allergy status to other drugs, medicaments and biological substances; Z79.899 Other long term (current) drug therapy
CPT/HCPCS: 36415; 80048; 84484; 85025; 93005; 93010; 99285-25; J7030

== ENCOUNTER 2018-11-05 10:45 | Day surgery (SDC) | payer MEDICARE ==
[~2018-11-05] VITALS: Ht 177.8 cm; Wt 80.4 kg
[~2018-11-05 10:45] MED LIST changes: +DORZOLAMIDE 2%10 ML; +MIDO5; +TIMO10T; +Xalatan2.5 ML BOTHEYES
[2018-11-05] MEDS ORDERED: METO25ER (12:28)
--- NOTE | 2018-11-05 13:51 | NUR ---
11/05/18 1351 Janett Hallman O2 AT 10L/FACE MASK
== END 2018-11-05 16:20 | disposition home or self-care (01) ==
LOC: ORSCSDS 10:45
DX: D50.9 Iron deficiency anemia, unspecified (principal); K29.70 Gastritis, unspecified, without bleeding; D12.4 Benign neoplasm of descending colon; D12.3 Benign neoplasm of transverse colon; D12.2 Benign neoplasm of ascending colon; I10 Essential (primary) hypertension; I25.10 Atherosclerotic heart disease of native coronary artery without angina pectoris; J44.9 Chronic obstructive pulmonary disease, unspecified; Z79.899 Other long term (current) drug therapy; F17.210 Nicotine dependence, cigarettes, uncomplicated
CPT/HCPCS: 88305; 88342; J2250; J7120

== ENCOUNTER 2019-03-12 13:15 | Inpatient (IN) | payer MEDICARE, OTHER ==
[~2019-03-12] VITALS: Ht 177.8 cm; Wt 82.3 kg
[2019-03-12 14:21] LABS: Source, Urine Voided
[2019-03-12 14:27] LABS: Bilirubin, Urine Neg (Neg); Blood, Urine 3+ (Neg); Glucose Qualitative, Urine Neg (Neg); Ketones, Urine Neg (Neg); Leukocyte Esterase, Urine Neg (Neg); Nitrite, Urine Neg (Neg); Protein, Urine Neg (Neg); Urobilinogen, Urine NORM (Normal)
[2019-03-12 14:41] LABS: Appearance, Urine Clear (Clear); Color, Urine Yellow (P-Yellow)
[2019-03-12 14:42] LABS: Bacteria Rare /hpf; Squamous Epithelial Cells Few /hpf (Few); White Blood Cells, Urine 0-2 /hpf (0-5)
[2019-03-12] MEDS ORDERED: Prednisolone Ace5 ML LEFTEYE (18:46)
--- NOTE | 2019-03-12 19:15 | NUR ---
OPENING NOTE RECEIVED BEDISDE REPORT FROM VICENTA BYNUM AND ASSUMED PT CARE. PT IS RESTING IN BED, VISITING WITH SISTER (PRESTON) AND OTHER GRANDCHILDREN AT THE BEDSIDE. PT DENIES COMPLAINTS AT THIS TIME. LEGALLY BLIND BUT ABLE TO SEE SOME LIGHT AND SHAPES WITH RIGHT EYE. ADMISSION PROCESS COMPLETED, WILL INITIATE ADMIT ORDERS AND PLAN OF CARE. NO ACUTE CONCERNS AT THIS TIME. BED ALARM ON AND BELONGINGS IN REACH.
--- NOTE | 2019-03-12 19:34 | NUR ---
NURSING PCU DAYSHIFT SUMMARY: Assumed care of pt at approx 1830. Arrived from ER via lilia pedersen to unit bed w/SBA. A/O, pleasant, cooperative w/care. 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 Mild general weakness, able to perform all ADL's w/minimal assistance for direction d/t vision. Skin is intact w/no breakdown noted. Denies any pain/discomfort. Tele in place, NSR w/1st degree block, hypertensive at time of arrival, no noted edema. L/S fairly cta t/o, mild dyspnea w/exertion, O2 sat 99% on RA, occ cough. Abd SNT, BT+, voiding w/o difficulty per pt. PIV x2, s/l at time of admission. No s/s of acute distress at arrival. Family at bedside, plan of care discussed, admission hx completed. Report provided to NOC RN. Pt and family denied any questions at that time.
--- NOTE | 2019-03-12 19:37 | NUR ---
PRBC TRANSFUSION PER MD ORDER, STARTED 2ND UNIT OF PRBC'S (VERIFIED WITH ELIZABETH BYNUM). REMAINED AT BEDSIDE FOR FIRST 15 MINS TO MONITOR FOR REACTION. PT TOLERATED WELL WITH NO COMPLAINTS, LAUGHING AND JOKING WITH VISITORS. VSS, NO ACUTE NEEDS. WILL CONTINUE TO MONITOR CLOSELY.
--- NOTE | 2019-03-12 21:30 | NUR ---
MD VISIT DR. TRAN PRESENT IN THE ROOM AND INITIATING CONSULT.
[2019-03-13 03:50] LABS: BASOPHILS ABSOLUTE AUTO 0.01 K/mm3 (0.00-0.23); BASOPHILS PERCENT AUTO 0 % (0-2); EOSINOPHILS ABSOLUTE AUTO 0.13 K/mm3 (0.00-0.68); EOSINOPHILS PERCENT AUTO 1 % (0-6); Hematocrit 27.8 % (37.0-53.0); Hemoglobin 7.5 g/dL (13.5-17.5); IMMATURE GRAN ABSOLUTE AUTO 0.07 K/mm3 (0.00-0.10); IMMATURE GRAN PERCENT AUTO 1 % (0-1); LYMPHOCYTES ABSOLUTE AUTO 0.75 K/mm3 (0.84-5.20); LYMPHOCYTES PERCENT AUTO 8 % (21-46); MONOCYTES ABSOLUTE AUTO 1.32 K/mm3 (0.16-1.47); MONOCYTES PERCENT AUTO 14 % (4-13); Mean Corpuscular HGB 20.9 pg (26.0-34.0); Mean Platelet Volume 10.1 fL (9.1-12.4); NEUTROPHILS ABSOLUTE AUTO 6.93 K/mm3 (1.96-9.15); NEUTROPHILS PERCENT AUTO 75 % (41-73); Platelet Count 517 K/mm3 (150-400); RDW Coefficient Variation 20.1 % (11.7-14.2); RDW Standard Deviation 56.9 fL (35.1-46.3); Red Blood Cell Count 3.58 M/mm3 (4.30-5.90); White Blood Cell Count 9.21 K/mm3 (4.00-11.30)
[2019-03-13 03:57] LABS: Mean Corpuscular Volume 78 fL (80-100)
[2019-03-13 04:09] LABS: Alanine Aminotransfer (ALT/SGP 10 U/L (12-78); Albumin, Blood 3.2 g/dL (3.4-5.0); Albumin/Globulin Ratio 0.8 (0.8-1.8); Alk Phos 86 U/L (50-136); Anion Gap 8 mmol/L (6-16); Aspartate Aminotrans (AST/SGOT 6 U/L (12-37); Bilirubin, Total 0.6 mg/dL (0.1-1.0); Blood Urea Nitrogen 20 mg/dL (8-24); Bun/Creatinine Ratio 22.5 (12.0-20.0); CO2, Blood 17 mmol/L (21-32); Calcium, Blood 8.3 mg/dL (8.5-10.1); Chloride, Blood 120 mmol/L (98-108); Creatinine, Blood 0.89 mg/dL (0.60-1.20); Globulin, Blood 3.8 g/dL (2.2-4.0); Glomerular Filtration Rate >60 (60-); Glucose, Blood 91 mg/dL (70-99); Potassium, Blood 3.2 mmol/L (3.5-5.5); Sodium, Blood 145 mmol/L (136-145)
--- NOTE | 2019-03-13 05:32 | NUR ---
PT HAS RESTED WELL THROUGH SHIFT, DENIES PAIN OR OTHER COMPLAINTS. STATES "I THINK I FEEL A LITTLE MORE STRENGTH THIS MORNING". 2ND UNIT OF PRBC'S COMPLETED AND LABS REVIEWED THIS AM. HEMOGLOBIN AT EXPECTED LEVEL PER DR. TRAN'S CONSULT NOTE. PLAN FOR EGD THIS AM, PT IS AWARE AND EXPRESSES UNDERSTANDING. PROTONIX RUNNING TO 20 G IV IN R HAND CONTINUOUSLY THROUGH THE SHIFT. NO S/SX OF OBVIOUS BLEEDING. WILL PROVIDE BEDSIDE REPORT TO DAY SHIFT RN.
--- NOTE | 2019-03-13 08:18 | NUR ---
NURSING PCU DAYSHIFT: Assumed care of pt at approx 0700. A/O, mildly anxious/irritable this a.m. regarding current NPO status, cooperative w/most aspects of care. Legally blind, mild general weakness, denies numbness/tingling. Denies any pain/discomfort at rest. Skin is fragile w/no breakdown noted. Tele in place, NSR, no c/o CP/pressure, SBP 150's, no noted edema. L/S cta t/o, O2 sat upper 90's on RA, denies dyspnea, occ cough producing stringy sputum. Abd SNT, BT+, voiding w/o difficulty. PIV x2, protonix gtt at 10/hr. No s/s of acute distress this a.m. Day surgery RN at bedside for transport, plan for EGD this a.m. Pt denied any questions/needs. Seen by PMD, will await for pt return from procedure.
--- NOTE | 2019-03-13 08:40 | NUR ---
0825 UP WITH STANDBY ASSIST IN PCU13, TO SÁNCHEZ, GAIT STABLE, History, Chart, Medications and Allergies reviewed before start of procedure.Lungs clear T/O to Auscultation. Patient confirms NPO status and agrees with scheduled surgery. Pre-Op teaching done. Pt verbalizes understanding.
--- NOTE | 2019-03-13 09:24 | NUR ---
03/13/19 0924 Laurent Sanchez PATIENT DETERMINED TO BE ASA APPROPRIATE FOR PROPOFOL SEDATION PRIOR TO START OF PROCEDURE BY . 3-LEAD EKG REVIEWED WITH PHYSICIAN PRIOR TO START OF PROCEDURE.PATIENT CONFIRMS NPO STATUS AND AGREES WITH SCHEDULED PROCEDURE.History, Chart, Medications and Allergies reviewed before start of procedure.MONITOR INTACT WITH CONTINUOUS PULSE OXIMETRY AND INTERMITTENT BP.O2 VIA N/C INTACT THROUGHOUT SEDATION/PROCEDURE.Bite Block Placed
--- NOTE | 2019-03-13 17:34 | NUR ---
NURSING PCU DAYSHIFT SUMMARY: EGD completed this a.m. as ordered, interventions completed. Tolerating post procedure regular diet. Several brown/formed BMs t/o afternoon, no active bleed noted. Pt cleared for discharge tomorrow per GI. K+ and iron administered, 1unit PRBCs infused, pt tolerated well. Pt has been pleasant though intermittently confused and requires redirection, bed alarm set for safety purposes. Family at bedside intermittently t/o the shift, updates provided, questions answered. No s/s of acute distress at this time. Call light in reach, cont to monitor until rpt is given to NOC RN.
[2019-03-13 20:57] LABS: Hematocrit 31.1 % (37.0-53.0); Hemoglobin 8.9 g/dL (13.5-17.5)
[2019-03-14 04:03] LABS: BASOPHILS ABSOLUTE AUTO 0.01 K/mm3 (0.00-0.23); BASOPHILS PERCENT AUTO 0 % (0-2); EOSINOPHILS ABSOLUTE AUTO 0.29 K/mm3 (0.00-0.68); EOSINOPHILS PERCENT AUTO 4 % (0-6); Hematocrit 29.6 % (37.0-53.0); Hemoglobin 8.2 g/dL (13.5-17.5); IMMATURE GRAN ABSOLUTE AUTO 0.08 K/mm3 (0.00-0.10); IMMATURE GRAN PERCENT AUTO 1 % (0-1); LYMPHOCYTES ABSOLUTE AUTO 0.97 K/mm3 (0.84-5.20); LYMPHOCYTES PERCENT AUTO 12 % (21-46); MONOCYTES ABSOLUTE AUTO 1.79 K/mm3 (0.16-1.47); MONOCYTES PERCENT AUTO 22 % (4-13); Mean Corpuscular HGB 21.2 pg (26.0-34.0); Mean Corpuscular HGB Conc 27.7 g/dL (31.5-36.5); Mean Corpuscular Volume 77 fL (80-100); Mean Platelet Volume 10.3 fL (9.1-12.4); NEUTROPHILS PERCENT AUTO 61 % (41-73); Platelet Count 486 K/mm3 (150-400); RDW Coefficient Variation 21.4 % (11.7-14.2); RDW Standard Deviation 59.5 fL (35.1-46.3); Red Blood Cell Count 3.87 M/mm3 (4.30-5.90); White Blood Cell Count 8.04 K/mm3 (4.00-11.30)
[2019-03-14 04:23] LABS: Anion Gap 7 mmol/L (6-16); Blood Urea Nitrogen 19 mg/dL (8-24); Bun/Creatinine Ratio 21.4 (12.0-20.0); CO2, Blood 19 mmol/L (21-32); Calcium, Blood 8.4 mg/dL (8.5-10.1); Chloride, Blood 117 mmol/L (98-108); Creatinine, Blood 0.89 mg/dL (0.60-1.20); Glomerular Filtration Rate >60 (60-); Glucose, Blood 97 mg/dL (70-99); Potassium, Blood 3.5 mmol/L (3.5-5.5); Sodium, Blood 143 mmol/L (136-145)
--- NOTE | 2019-03-14 05:15 | NUR ---
SHIFT SUMMARY PT HAS REMAINED AOX4 THROUGHOUT SHIFT, BUT OCCASIONALLY REQUIRES REORIENTATION UPON WAKING. CONTINUES TO AMBULATE WITH STANDBY ASSIST AND HOME FWW TO RESTROOM WITH MINIMAL DIFFICULTY. VSS. COOPERATIVE WITH CARE. PT CONTINUES TO BE SOMEWHAT IRRITATED THROUGHOUT THE NIGHT, STATING THAT HE DOESN'T LIKE BEING ADMITTED TO THE HOSPITAL. HAS DENIED PAIN AND RESTED THROUGHOUT MUCH OF THE NIGHT. NO OTHER CHANGES FROM INITIAL ASSESSMENT. WILL CONTINUE TO MONITOR AND REPORT TO ONCOMING SHIFT RN. BED IN LOW POSITION, CALL LIGHT IN REACH. BED ALARM SET FOR SAFETY.
--- NOTE | 2019-03-14 08:00 | NUR ---
SHIFT SUMMARY PT ALERT AND ORIENTED. VS STABLE. O2 SATS REMAIN ABOVE 90% ON RA. PT DENIES ANY PAIN. PT DENIES ANY LOOSE STOOL OR BLOOD IN THE STOOL. PT ABLE TO TRANSFER WITH SBA AND PERSONAL WALKER NEEDED. BED ALARM ON. PT IS LEGALLY BLIND. PT ABLE TO USE CALL LIGHT. WILL CONTINUE TO MONITOR CLOSELY.
--- NOTE | 2019-03-14 15:12 | NUR ---
Patient is being prepped for a shower so I a small window to talk with patient but I feel we made good use of the time. 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 Patient shares about the of his , Ines, here at the hospital about a month ago, we talk about and dying and if he will see her again when he dies. Patient stated that he thought he was going to this visit to the hospital but becuase of our great staff he is talking about being discharged. I listen empathically, provide grief support, explore his voodoo beliefs, provide pastoral breastfeeding peer counselor and provide prayer. Patient responds well and shows signs restored aiden.
--- NOTE | 2019-03-14 17:37 | NUR ---
PT'S SON IN TO PICK HIM UP FOR DISCHARGE. DISCHARGE INSTRUCTIONS PROVIDED AND EDUCATION ON NEW MEDICATION. PT EDUCATED TO AVOID NSAIDS AND RISKS OF TAKING THEM. IV REMOVED. PT TAKEN OUT BY WHEELCHAIR.
== END 2019-03-14 17:30 | disposition home health service (06) | DRG 378 ==
LOC: ER 13:15 → PCU 13:16
PROVIDERS: Emergency Medicine; Internal Medicine Gastroenterology; ADMIT Internal Medicine
PROC: 30233N1 Transfusion of Nonautologous Red Blood Cells into Peripheral Vein, Percutaneous Approach (ICD-10-PCS; 2019-03-12)
PROC: 0W3P8ZZ Control Bleeding in Gastrointestinal Tract, Via Natural or Artificial Opening Endoscopic (ICD-10-PCS; principal; 2019-03-13 09:00)
PROC: 3E0G8GC Introduction of Other Therapeutic Substance into Upper GI, Via Natural or Artificial Opening Endoscopic (ICD-10-PCS; 2019-03-13 09:00)
DX: K31.811 Angiodysplasia of stomach and duodenum with bleeding (principal); D62 Acute posthemorrhagic anemia; D50.0 Iron deficiency anemia secondary to blood loss (chronic); E87.6 Hypokalemia; J44.9 Chronic obstructive pulmonary disease, unspecified; H54.8 Legal blindness, as defined in USA; H35.30 Unspecified macular degeneration; Z66 Do not resuscitate; I25.10 Atherosclerotic heart disease of native coronary artery without angina pectoris; I10 Essential (primary) hypertension; I25.2 Old myocardial infarction
CPT/HCPCS: 36415; 36416; 36430; 71045; 80048; 80053; 81001; 83880; 84484; 85014; 85018; 85025; 86850; 86900; 86901; 86923; 88305; 88342; 93005; 93010; 96374; 97162; 97166; 97530; 99285-25; C9113; J0171; J2704; J2916; J3480; J7030; J7050; J7120; P9016

== ENCOUNTER → 2019-03-12 | Outpatient (CLI) | payer MEDICARE, SELFPAY ==
[~2019-03-12] MED LIST changes: +METO25ER PO
[2019-03-12 12:21] LABS: BASOPHILS PERCENT AUTO 0 % (0-2); EOSINOPHILS ABSOLUTE AUTO 0.11 K/mm3 (0.00-0.68); EOSINOPHILS PERCENT AUTO 1 % (0-6); Hematocrit 24.1 % (37.0-53.0); Hemoglobin 6.4 g/dL (13.5-17.5); IMMATURE GRAN ABSOLUTE AUTO 0.11 K/mm3 (0.00-0.10); IMMATURE GRAN PERCENT AUTO 1 % (0-1); LYMPHOCYTES ABSOLUTE AUTO 0.92 K/mm3 (0.84-5.20); LYMPHOCYTES PERCENT AUTO 8 % (21-46); MONOCYTES ABSOLUTE AUTO 1.05 K/mm3 (0.16-1.47); MONOCYTES PERCENT AUTO 10 % (4-13); Mean Corpuscular HGB 19.2 pg (26.0-34.0); Mean Corpuscular HGB Conc 26.6 g/dL (31.5-36.5); Mean Corpuscular Volume 72 fL (80-100); Mean Platelet Volume 10.7 fL (9.1-12.4); NEUTROPHILS ABSOLUTE AUTO 8.88 K/mm3 (1.96-9.15); NEUTROPHILS PERCENT AUTO 80 % (41-73); Platelet Count 601 K/mm3 (150-400); RDW Coefficient Variation 18.8 % (11.7-14.2); Red Blood Cell Count 3.34 M/mm3 (4.30-5.90); White Blood Cell Count 11.07 K/mm3 (4.00-11.30)
[2019-03-12 12:40] LABS: Alanine Aminotransfer (ALT/SGP 15 U/L (12-78); Albumin, Blood 3.4 g/dL (3.4-5.0); Albumin/Globulin Ratio 0.8 (0.8-1.8); Alk Phos 99 U/L (40-126); Anion Gap 14 mmol/L (6-16); Aspartate Aminotrans (AST/SGOT 18 U/L (12-37); Bilirubin, Total 0.3 mg/dL (0.1-1.0); Blood Urea Nitrogen 31 mg/dL (8-24); Bun/Creatinine Ratio 25.8 (12.0-20.0); CO2, Blood 17 mmol/L (21-32); CPK Creatine Kinase 72 U/L (39-308); Calcium, Blood 8.9 mg/dL (8.5-10.1); Chloride, Blood 111 mmol/L (98-108); Free Thyroxine 1.04 ng/dL (0.70-1.60); Globulin, Blood 4.4 g/dL (2.2-4.0); Glomerular Filtration Rate 58 (60-); Glucose, Blood 122 mg/dL (70-99); Sodium, Blood 142 mmol/L (136-145); Thyroid Stimulating Hormone 0.799 uIU/mL (0.360-4.800); Total Protein, Blood 7.8 g/dL (6.4-8.2); Troponin I <0.017 ng/mL (0.000-0.040)
[2019-03-12 13:33] LABS: Percent Saturation 3.5 % (20.0-50.0)
[2019-03-12 13:36] LABS: BAND PERCENT MAN 1 % (0-8); BASOPHILS PERCENT MAN 0 % (0-2); EOSINOPHILS PERCENT MAN 0 % (0-6); LYMPHOCYTES ABSOLUTE MAN 0.77 K/mm3 (0.84-5.20); LYMPHOCYTES PERCENT MAN 7 % (21-46); MONOCYTES ABSOLUTE MAN 0.88 K/mm3 (0.16-1.47); MONOCYTES PERCENT MAN 8 % (4-13); SEG NEUTROPHILS PERCENT MAN 84 % (41-73); TOTAL CELLS COUNTED 100
[2019-03-12 13:38] LABS: International Normalized Ratio 1.11; Prothrombin Time Results 11.7 Sec (9.7-11.5)
== END | disposition home or self-care (01) ==
LOC: LAB EV 12:08 → LAB SHORT 12:08
PROVIDERS: General Practice
DX: R06.00 Dyspnea, unspecified (principal); R79.1 Abnormal coagulation profile; E61.1 Iron deficiency; R53.81 Other malaise
CPT/HCPCS: 80053; 82550; 83540; 83550; 83880; 84439; 84443; 84484; 85025; 85379; 85610; 85730

== ENCOUNTER → 2019-03-26 | Outpatient (CLI) | payer MEDICARE, SELFPAY ==
[2019-03-26 16:24] LABS: BASOPHILS ABSOLUTE AUTO 0.01 K/mm3 (0.00-0.23); BASOPHILS PERCENT AUTO 0 % (0-2); EOSINOPHILS PERCENT AUTO 4 % (0-6); Hematocrit 31.2 % (37.0-53.0); Hemoglobin 8.6 g/dL (13.5-17.5); IMMATURE GRAN ABSOLUTE AUTO 0.13 K/mm3 (0.00-0.10); IMMATURE GRAN PERCENT AUTO 2 % (0-1); LYMPHOCYTES ABSOLUTE AUTO 1.26 K/mm3 (0.84-5.20); LYMPHOCYTES PERCENT AUTO 17 % (21-46); MONOCYTES ABSOLUTE AUTO 0.81 K/mm3 (0.16-1.47); MONOCYTES PERCENT AUTO 11 % (4-13); Mean Corpuscular HGB 22.5 pg (26.0-34.0); Mean Corpuscular HGB Conc 27.6 g/dL (31.5-36.5); Mean Platelet Volume 10.7 fL (9.1-12.4); NEUTROPHILS ABSOLUTE AUTO 4.97 K/mm3 (1.96-9.15); NEUTROPHILS PERCENT AUTO 67 % (41-73); Platelet Count 661 K/mm3 (150-400); RDW Coefficient Variation 31.1 % (11.7-14.2); RDW Standard Deviation 85.3 fL (35.1-46.3); Red Blood Cell Count 3.83 M/mm3 (4.30-5.90); White Blood Cell Count 7.48 K/mm3 (4.00-11.30)
[2019-03-26 16:42] LABS: Albumin, Blood 3.4 g/dL (3.4-5.0); Albumin/Globulin Ratio 0.9 (0.8-1.8); Bilirubin, Total 0.5 mg/dL (0.1-1.0); Bun/Creatinine Ratio 20.2 (12.0-20.0); Calcium, Blood 8.6 mg/dL (8.5-10.1); Creatinine, Blood 1.29 mg/dL (0.60-1.20); Globulin, Blood 3.7 g/dL (2.2-4.0); Potassium, Blood 3.7 mmol/L (3.5-5.5); Thyroid Stimulating Hormone 1.131 uIU/mL (0.360-4.800); Total Protein, Blood 7.1 g/dL (6.4-8.2)
[2019-03-26 17:03] LABS: Mean Corpuscular Volume 82 fL (80-100)
[2019-03-26 18:15] LABS: Percent Saturation 13.9 % (20.0-50.0)
== END | disposition home or self-care (01) ==
LOC: LAB SHORT 16:18 → LAB EV 16:18
PROVIDERS: General Practice
DX: D50.9 Iron deficiency anemia, unspecified (principal); R53.81 Other malaise
CPT/HCPCS: 80053; 83540; 83550; 84443; 85025

== ENCOUNTER 2020-03-08 07:00 | Inpatient (IN) | payer OTHER, MEDICARE ==
[~2020-03-08] VITALS: Ht 177.8 cm; Wt 90.1 kg
[2020-03-08 07:37] LABS: Hematocrit 32.8 % (37.0-53.0); Hemoglobin 10.6 g/dL (13.5-17.5); Mean Corpuscular HGB Conc 32.3 g/dL (31.5-36.5); Mean Corpuscular Volume 102 fL (80-100); Mean Platelet Volume 10.4 fL (9.1-12.4); Platelet Count 217 K/mm3 (150-400); RDW Coefficient Variation 15.4 % (11.7-14.2); RDW Standard Deviation 57.1 fL (35.1-46.3); Red Blood Cell Count 3.21 M/mm3 (4.30-5.90); White Blood Cell Count 4.77 K/mm3 (4.00-11.30)
[2020-03-08 07:57] LABS: BAND PERCENT MAN 18 % (0-8); BASOPHILS PERCENT MAN 0 % (0-2); EOSINOPHILS PERCENT MAN 0 % (0-6); LYMPHOCYTES ABSOLUTE MAN 0.23 K/mm3 (0.84-5.20); LYMPHOCYTES PERCENT MAN 5 % (21-46); MONOCYTES ABSOLUTE MAN 0.38 K/mm3 (0.16-1.47); MONOCYTES PERCENT MAN 8 % (4-13); NEUTROPHILS ABSOLUTE MAN 4.14 K/mm3 (1.96-9.15); SEG NEUTROPHILS PERCENT MAN 69 % (41-73); TOTAL CELLS COUNTED 100
[2020-03-08 07:59] LABS: Albumin, Blood 3.6 g/dL (3.4-5.0); Albumin/Globulin Ratio 1.1 (0.8-1.8); Bilirubin, Total 1.3 mg/dL (0.1-1.0); Calcium, Blood 8.6 mg/dL (8.5-10.1); Creatinine, Blood 2.28 mg/dL (0.60-1.20); Globulin, Blood 3.4 g/dL (2.2-4.0); Potassium, Blood 3.7 mmol/L (3.5-5.5)
[2020-03-08] MEDS ORDERED: FERSU300 PO (08:14)
[2020-03-08] MEDS ORDERED: ACET250 PO (08:14)
[2020-03-08] MEDS ORDERED: MIDO5 PO (08:15)
[2020-03-08] MEDS ORDERED: LATA.005SO BOTHEYES (08:15)
[2020-03-08] MEDS ORDERED: METO25ER PO (08:15)
[2020-03-08] MEDS ORDERED: Fludrocortison0.1 MG PO (08:15)
[2020-03-08] MEDS ORDERED: BETIMOL5 ML LEFTEYE (08:16)
[2020-03-08] MEDS ORDERED: OMEP20ER PO (08:16)
[2020-03-08] MEDS ORDERED: Crestor20 MG PO (08:16)
[2020-03-08] MEDS ORDERED: SERT50 PO (08:16)
[2020-03-08] MEDS ORDERED: PRED PH-MOXI-BRO5 M1 LEFTEYE (08:16)
[2020-03-08] MEDS ORDERED: MONDOXYNE NL100 MG PO (08:17)
[2020-03-08] MEDS ORDERED: SYSTANE 0.3-0.415 ML OP (08:17)
[2020-03-08] MEDS ORDERED: ASPI81CH PO (08:17)
[2020-03-08 08:56] LABS: Source, Urine Clean Catch
[2020-03-08 08:58] LABS: Bilirubin, Urine Neg (Neg); Blood, Urine 5+ (Neg); Glucose Qualitative, Urine Neg (Neg); Ketones, Urine Neg (Neg); Leukocyte Esterase, Urine 3+ (Neg); Nitrite, Urine Neg (Neg); Protein, Urine 3+ (Neg); Specific Gravity, Urine 1.015 (1.003-1.022); Urobilinogen, Urine NORM (Normal)
[2020-03-08 09:08] LABS: Appearance, Urine Hazy (Clear); Color, Urine Yellow (P-Yellow)
[2020-03-08 09:09] LABS: Bacteria Many /hpf; Squamous Epithelial Cells Rare /hpf (Few); White Blood Cells, Urine 50-100 /hpf (0-5)
--- NOTE | 2020-03-08 11:11 | NUR ---
PT ARRIVED TO PCU 10 VIA GURNEY FROM ED, REPORT FROM RN, PT AWAKE, MOANING, STATES HIS LOW BACK HURTS, ALERT, CONFUSED, COOPERATIVE WITH CARE, FOLLOWS COMMANDS WELL, LUNGS ARE CLEAR T/O, HAS RAPID RESP, NO COUGH NOTED, SATS IN THE HIGH 80'S, PLACED HIM ON 2 LITERS O2 VIA N/C, HRR, TELE IN PLACE RUNNING SR PER MONITOR, SEE STRIP, NO EDEMA NOTED, PPP+2, CAP REFILL <3SEC, VS STABLE, AFEBRILE, IV SITE CLEAR AND PATENT, BTX4, ABD FLAT SOFT NONTENDER, VOIDS VIA URINAL, BUT DOES HAVE PULL UPS IN PLACE, SKIN C/W/D, ASIA FLETCHER, ORIENTED TO ROOM LAYOUT AND CALL SYSTEM, CALL LIGHT IN REACH.
--- NOTE | 2020-03-08 11:38 | NUR ---
cALL TO dR. WOLFE TO LET HIM KNOW THAT THE PT IS IN PCU 10. THE PT'S SON MADELINE IS AT THE BEDSIDE. DR WOLFE SAID THAT HE WILL TRY TO BE DOWN TO SEE THE PT IN ABOUT 30 MINUTES.
--- NOTE | 2020-03-08 16:33 | NUR ---
Call to Dr. Jhaveri regarding hypotension. New orders recevied.
--- NOTE | 2020-03-08 18:21 | NUR ---
PT B/P HAS DROPPED DOWN TO THE 70'S, GAVE A 500ML BOLUS PER DR. WOLFE, HE IS CURRENTLY IN THE 80'S, NOTIFIED, AND STARTED HIM ON MIDIDRINE, AND FLORENEF. THIS WAS GIVEN, HE IS STILL INFUSING FLUIDS AT 200MLS/HR, AND STARTED HIM ON VANCO, HE IS IN GOOD HUMOR, NO COMPLAINTS, ATE A BIT OF DINNER, HAD A BM, GUIAC SENT STOOL APPEARED DARK, CALL LIGHT IN REACH, NO FURTHER CHANGES.
--- NOTE | 2020-03-09 01:31 | NUR ---
ASSUMED CARE OF PATIENT AT APPROXIMATELY 1910 FROM MIRIAN Hester RN. PATIENT ALERT AND ORIENTED TO SELF, AND LOCATION. PATIENT HARD OF HEARING AND BLIND. PATIENT CONFUSED; USED CALL LIGHT TO WIPE EYES AFTER USING TISSUE; MAKES ODD STATEMENTS AT TIMES. PATIENT REPORTS HE HAS PAIN IN HIS BACK WITH MOVEMENT AFTER HIS FALL AT HOME; MULTIPLE BRUISES NOTED. PATIENT DENIES NUMBNESS, TINGLING, DIZZINESS OR NAUSEA. NSR ON TELE; OXYGEN SATURATION ABOVE 90% ON ROOM AIR. BLOOD PRESSURE IMPROVED T/O SHIFT. CALL PLACED TO KELSEY RAMOS FOR MAINTENANCE FLUIDS AFTER BOLUS WAS COMPLETE; ORDERS RECIEVED. FIRST BLOOD CULTURES BACK GROWING GRAM NEG RODS; PHARMACY CALLED. PATIENT INCONTINENT OF LOOSE STOOL; SAMPLE SENT PER ORDER; USES URINAL IN BED. PATIENT CURRENTLY RESTING IN BED; CALL LIGHT IN REACH; BED IN LOWEST POSISTION; BED ALARM ON; WILL CONTINUE TO MONITOR AND ASSESS UNTIL END OF SHIFT.
[2020-03-09 04:32] LABS: Hematocrit 29.4 % (37.0-53.0); Hemoglobin 9.3 g/dL (13.5-17.5); Mean Corpuscular HGB Conc 31.6 g/dL (31.5-36.5); Mean Corpuscular Volume 104 fL (80-100); Mean Platelet Volume 11.4 fL (9.1-12.4); Platelet Count 156 K/mm3 (150-400); RDW Coefficient Variation 15.8 % (11.7-14.2); RDW Standard Deviation 60.3 fL (35.1-46.3); Red Blood Cell Count 2.82 M/mm3 (4.30-5.90); White Blood Cell Count 2.94 K/mm3 (4.00-11.30)
[2020-03-09 04:50] LABS: Anion Gap 11 mmol/L (6-16); Blood Urea Nitrogen 52 mg/dL (8-24); Bun/Creatinine Ratio 23.9 (12.0-20.0); CO2, Blood 15 mmol/L (21-32); Calcium, Blood 7.6 mg/dL (8.5-10.1); Chloride, Blood 116 mmol/L (98-108); Creatinine, Blood 2.18 mg/dL (0.60-1.20); Glomerular Filtration Rate 31 (60-); Glucose, Blood 102 mg/dL (70-99); Potassium, Blood 3.6 mmol/L (3.5-5.5); Sodium, Blood 142 mmol/L (136-145); Vancomycin, Random 9.3 ug/mL
[2020-03-09 05:48] LABS: BAND PERCENT MAN 10 % (0-8); BASOPHILS PERCENT MAN 0 % (0-2); EOSINOPHILS ABSOLUTE MAN 0.02 K/mm3 (0.00-0.68); EOSINOPHILS PERCENT MAN 1 % (0-6); LYMPHOCYTES ABSOLUTE MAN 0.05 K/mm3 (0.84-5.20); LYMPHOCYTES PERCENT MAN 2 % (21-46); METAMYELOCYTE ABSOLUTE MAN 0.02 K/mm3 (0.00-0.00); METAMYELOCYTE PERCENT MAN 1 % (0-0); MONOCYTES ABSOLUTE MAN 0.23 K/mm3 (0.16-1.47); MONOCYTES PERCENT MAN 8 % (4-13); NEUTROPHILS ABSOLUTE MAN 2.58 K/mm3 (1.96-9.15); SEG NEUTROPHILS PERCENT MAN 78 % (41-73); TOTAL CELLS COUNTED 100
--- NOTE | 2020-03-09 05:58 | NUR ---
UPDATED HOSPITALIST ON POSISTIVE BLOOD CULTURES; COVERED BY CURRENT ABX. PATIENT CALLED OUT INSTEAD OF USING CALL LIGHT. PATIENT SLEPT ABOUT EIGHT HOURS LAST NIGHT. VSS. WILL CONTINUE TO MONITOR AND ASSESS UNTIL END OF SHIFT.
--- NOTE | 2020-03-09 07:33 | NUR ---
PT LAYING IN BED AWAKE ALERT TO SELF, CALLS OUT WHEN HE NEEDS SOMETHING, IS BLIND IN LEFT EYE, PLEASANT AND COOPERTIVE WITH CARE, FOLLOWS COMMANDS WELL, REPORTS PAIN TO LOW BACK FROM A FALL AT HOME, OTHERWISE HAD A GOOD NIGHT, LUNGS ARE CLEAR T/O, RESP EVEN AND UNLABORED, NO COUGH NOTED, HRR, TELE IN PLACE RUNNING SR PER MONITOR, SEE STRIP, NO EDEMA NOTED, MAYBE A TRACE BIT OF PUFFINESS AROUND EYES, PPP+1, CAP REFILL <3SEC, VS STABLE, AFEBRILE, IV SITES ARE CLEAR AND PATENT, INFUSING FLUIDS ORDERED, BTX4, ATTENDS IN PLACE BUT USES A URINAL WITH ASSIST, SKIN C/W/D, JUSTINE, CALL LIGHT IN REACH WITH A PAD SO HE CAN FEEL IT TO CALL.
[2020-03-09 13:57] LABS: Stool Occult Blood Guaiac 1 Pos (Neg); Stool Occult Blood Guaiac 2 Pos (Neg)
[2020-03-09 13:58] LABS: Stool Occult Blood Guaiac 3 Pos (Neg)
--- NOTE | 2020-03-09 18:50 | NUR ---
pt continues to be confused, but has sat up in a recliner most of the day, he doesn't use the call system, but calls out, that is usually when he needs to void, tab alarm on him at all times, and bed alarm when he is in bed, call light in reach.
[2020-03-10 04:23] LABS: Hematocrit 26.6 % (37.0-53.0); Hemoglobin 8.5 g/dL (13.5-17.5); Mean Corpuscular HGB 32.7 pg (26.0-34.0); Mean Corpuscular Volume 102 fL (80-100); Mean Platelet Volume 11.2 fL (9.1-12.4); Platelet Count 142 K/mm3 (150-400); RDW Coefficient Variation 15.9 % (11.7-14.2); RDW Standard Deviation 59.6 fL (35.1-46.3); White Blood Cell Count 2.31 K/mm3 (4.00-11.30)
--- NOTE | 2020-03-10 04:35 | NUR ---
HOSPITALIST NOTIFIED OF NEW ONSET A/FIB WITH HR IN 130'S. PT C/O CHEST PAIN AT THIS TIME. NEW ORDER FOR IV METOPROLOL NOW.
[2020-03-10 04:40] LABS: Anion Gap 11 mmol/L (6-16); Blood Urea Nitrogen 60 mg/dL (8-24); Bun/Creatinine Ratio 26.2 (12.0-20.0); CO2, Blood 16 mmol/L (21-32); Calcium, Blood 7.5 mg/dL (8.5-10.1); Chloride, Blood 117 mmol/L (98-108); Creatinine, Blood 2.29 mg/dL (0.60-1.20); Glomerular Filtration Rate 29 (60-); Glucose, Blood 107 mg/dL (70-99); Potassium, Blood 3.2 mmol/L (3.5-5.5); Sodium, Blood 144 mmol/L (136-145); Vancomycin, Random 12.8 ug/mL
[2020-03-10 05:06] LABS: BAND PERCENT MAN 21 % (0-8); BASOPHILS PERCENT MAN 0 % (0-2); EOSINOPHILS ABSOLUTE MAN 0.02 K/mm3 (0.00-0.68); EOSINOPHILS PERCENT MAN 1 % (0-6); LYMPHOCYTES ABSOLUTE MAN 0.09 K/mm3 (0.84-5.20); LYMPHOCYTES PERCENT MAN 4 % (21-46); METAMYELOCYTE ABSOLUTE MAN 0.06 K/mm3 (0.00-0.00); METAMYELOCYTE PERCENT MAN 3 % (0-0); MONOCYTES ABSOLUTE MAN 0.18 K/mm3 (0.16-1.47); MONOCYTES PERCENT MAN 8 % (4-13); MYELOCYTE ABSOLUTE MAN 0.02 K/mm3 (0.00-0.00); MYELOCYTE PERCENT MAN 1 % (0-0); NEUTROPHILS ABSOLUTE MAN 1.91 K/mm3 (1.96-9.15); SEG NEUTROPHILS PERCENT MAN 62 % (41-73); TOTAL CELLS COUNTED 100
--- NOTE | 2020-03-10 06:03 | NUR ---
SHIFT SUMMARY: PT ALERT TO SELF AND SURROUNDINGS. CALM AND COOPERATIVE WITH CARE. PT ABLE TO MAKE HIS NEEDS KNOWN AND ASKS FOR ASSISTANCE WITH URINAL. DRINKING SMALL SIPS OF WATER THROUGHOUT SHIFT. PT OUT OF BED TO BSC WITH 1-2 ASSIST AND FWW. PT WEAK AND DYSPNEIC WITH ACTIVITY. RR BETWEEN 28-32. O2 STABLE ON RA. PT WENT INTO NEW ONSET A/FIB THIS MORNING WITH C/O CHEST PAIN. PT GIVEN IV METOPROLOL PER ORDERS. WILL CTM HR AND RHYTHM. PT DENIES CHEST PAIN AT THIS TIME. RESTING WITH HOB ELEVATED WITH CALL LIGHT IN REACH. BED ALARM ON FOR SAFETY.
--- NOTE | 2020-03-10 06:26 | NUR ---
DISCUSSED WITH PHARMACIST REGARDING INEFFECTIVE TREATMENT OF VANCOMYCIN FOR GRAM NEGATIVE SILVESTRE BACTERIA FOUND IN URINE. DR FRANCO NOTIFIED. DR FRANCO ADVISING TO HOLD THE VANCOMYCIN PT IS ALREADY ON ROCEPHIN AND DOXYCYCLINE.
[2020-03-10 10:04] LABS: Magnesium, Blood 1.8 mg/dL (1.6-2.4)
[2020-03-10 10:06] LABS: Thyroid Stimulating Hormone 0.616 uIU/mL (0.360-4.800)
--- NOTE | 2020-03-10 10:58 | NUR ---
Echocardiogram completed.
[2020-03-10 11:30] LABS: Magnesium, Blood 1.8 mg/dL (1.6-2.4)
[2020-03-10 11:32] LABS: Potassium, Blood 3.3 mmol/L (3.5-5.5); Troponin I 0.175 ng/mL (0.000-0.040)
--- NOTE | 2020-03-10 18:05 | NUR ---
SHIFT SUMMARY PT A&Ox2; CALM AND COOPERTIAVE WITH CARE. PT RESTING IN BED THIS AM. REPOSITION FOR COMFORT. PT DENIES PAIN, CHEST PAIN/PRESSURE, AND NAUSEA. THIS AM, PT HR 120-140; AFIB PER TELE; BP HYPOTENSIVE; GIVEN CARDIZEM IV PUSH AND GTT; CONVERTED AT APPROX 1020 TO SINUS 70-80'S. PT SOB AT REST T/O SHIFT, LABORED BREATHING THIS AM, DECREASED THIS AM ONCE CONVERTED TO SINUS; PT REMAINS TACHYPNIC T/O SHIFT. DR FRANCO UPDATED ON PT CONDITION T/O SHIFT. DR GHOSH AND DR FELIZ CONSULTED DURING SHIFT. OTHER VSS. NO OTHER ACUTE CHANGES. WILL CONTINUE TO MONITOR UNTIL REPORT GIVEN TO ONCOMING RN.
--- NOTE | 2020-03-10 22:30 | NUR ---
UPDATE PT A&O TO SELF; PT HAS URINARY FREQUENCY; ATTENDS IN PLACE & URINAL PROVIDED; BLADDER SCAN PERFORMED PER ORDERS; NOTIFIED OF BLADDER SCAN OF 364 ML; CALL LIGHT IN REACH; BED IN LOWEST POSITION; BED ALARM ON.
[2020-03-11 04:22] LABS: Hematocrit 25.9 % (37.0-53.0); Hemoglobin 8.3 g/dL (13.5-17.5); Mean Corpuscular HGB 32.3 pg (26.0-34.0); Mean Corpuscular Volume 101 fL (80-100); Mean Platelet Volume 11.4 fL (9.1-12.4); Platelet Count 136 K/mm3 (150-400); Red Blood Cell Count 2.57 M/mm3 (4.30-5.90); White Blood Cell Count 1.85 K/mm3 (4.00-11.30)
[2020-03-11 04:35] LABS: Albumin, Blood 2.2 g/dL (3.4-5.0); Anion Gap 8 mmol/L (6-16); Blood Urea Nitrogen 60 mg/dL (8-24); Bun/Creatinine Ratio 30.6 (12.0-20.0); CO2, Blood 20 mmol/L (21-32); Calcium, Blood 7.6 mg/dL (8.5-10.1); Chloride, Blood 116 mmol/L (98-108); Creatinine, Blood 1.96 mg/dL (0.60-1.20); Glomerular Filtration Rate 35 (60-); Glucose, Blood 119 mg/dL (70-99); Phosphorus, Blood 2.6 mg/dL (2.5-4.9); Potassium, Blood 3.1 mmol/L (3.5-5.5); Sodium, Blood 144 mmol/L (136-145)
[2020-03-11 05:45] LABS: BAND PERCENT MAN 7 % (0-8); BASOPHILS PERCENT MAN 0 % (0-2); EOSINOPHILS PERCENT MAN 0 % (0-6); LYMPHOCYTES ABSOLUTE MAN 0.14 K/mm3 (0.84-5.20); LYMPHOCYTES PERCENT MAN 8 % (21-46); MONOCYTES ABSOLUTE MAN 0.07 K/mm3 (0.16-1.47); MONOCYTES PERCENT MAN 4 % (4-13); NEUTROPHILS ABSOLUTE MAN 1.62 K/mm3 (1.96-9.15); SEG NEUTROPHILS PERCENT MAN 81 % (41-73); TOTAL CELLS COUNTED 100
--- NOTE | 2020-03-11 05:50 | NUR ---
SHIFT SUMMARY PT A&O X 2; COMPLIANT W/ CARE; ANSWERS APPROPRIATELY; VSS; NSR NOTED ON TELE; HR 70'S - 80'S; DENIES CHEST PAIN; O2 SATS >93 ON RA; DYSPNEA W/ ATTENDS CHANGE & REPOSITIONING; NO ACUTE CHANGES; CALL LIGHT IN REACH; BED IN LOWEST POSITION; WILL CONTINUE TO MONITOR UNTIL HAND OFF TO DAY SHIFT RN.
--- NOTE | 2020-03-11 19:40 | NUR ---
ASSUMED CARE APPROXIMATELY 192 FROM MISA NOEL; FAMILY AT BEDSIDE; PT APPEARS MORE ALERT FROM PREVIOUS SHIFT; PT MAKING NEEDS KNOWN; ASSISTANCE W/URINAL GIVEN; PT HAS FREQUENCY & URGENCY W/ URINATION; L SCROTAL SWELLING NOTED, DAY SHIFT RN STATED WAS PRESENT EARLIER IN DAY; PT DENIES CHEST PAIN; VSS; CALL LIGHT IN REACH; BED IN LOWEST POSITION; BED ALARM ON
--- NOTE | 2020-03-11 19:53 | NUR ---
SHIFT SUMMARY PT A&Ox2; CALM AND COOPERTIAVE WITH CARE. PT RESTING IN BED THIS AM. REPOSITION FOR COMFORT. PT DENIES PAIN, CHEST PAIN/PRESSURE, AND NAUSEA. PT SOB WITH MOVEMENT AND WHEN PT YELLING OUT FOR ASSISTANCE. SPO2 >90% T/O SHIFT. PT HAD NM STUDY THIS AM. PT RECEIVING IV ANTIBIOTICS AND KCL. PER TELE SINUS 70-80'S T/O SHIFT. OTHER VSS. NO OTHER ACUTE CHANGES NOTED DURING SHIFT. REPORT GIVEN TO ONCOMING RN.
[2020-03-12 04:09] LABS: BASOPHILS ABSOLUTE AUTO 0.01 K/mm3 (0.00-0.23); BASOPHILS PERCENT AUTO 1 % (0-2); EOSINOPHILS ABSOLUTE AUTO 0.02 K/mm3 (0.00-0.68); EOSINOPHILS PERCENT AUTO 2 % (0-6); Hematocrit 24.5 % (37.0-53.0); Hemoglobin 7.8 g/dL (13.5-17.5); IMMATURE GRAN ABSOLUTE AUTO 0.02 K/mm3 (0.00-0.10); IMMATURE GRAN PERCENT AUTO 2 % (0-1); LYMPHOCYTES ABSOLUTE AUTO 0.09 K/mm3 (0.84-5.20); LYMPHOCYTES PERCENT AUTO 7 % (21-46); MONOCYTES ABSOLUTE AUTO 0.05 K/mm3 (0.16-1.47); MONOCYTES PERCENT AUTO 4 % (4-13); Mean Corpuscular HGB 32.5 pg (26.0-34.0); Mean Corpuscular HGB Conc 31.8 g/dL (31.5-36.5); Mean Corpuscular Volume 102 fL (80-100); Mean Platelet Volume 11.6 fL (9.1-12.4); NEUTROPHILS PERCENT AUTO 85 % (41-73); Platelet Count 122 K/mm3 (150-400); RDW Coefficient Variation 15.9 % (11.7-14.2); RDW Standard Deviation 60.1 fL (35.1-46.3); White Blood Cell Count 1.29 K/mm3 (4.00-11.30)
[2020-03-12 04:28] LABS: Anion Gap 9 mmol/L (6-16); Blood Urea Nitrogen 45 mg/dL (8-24); Bun/Creatinine Ratio 26.9 (12.0-20.0); CO2, Blood 23 mmol/L (21-32); Calcium, Blood 7.6 mg/dL (8.5-10.1); Chloride, Blood 111 mmol/L (98-108); Creatinine, Blood 1.67 mg/dL (0.60-1.20); Glomerular Filtration Rate 42 (60-); Glucose, Blood 102 mg/dL (70-99); Magnesium, Blood 1.8 mg/dL (1.6-2.4); Potassium, Blood 2.9 mmol/L (3.5-5.5); Sodium, Blood 143 mmol/L (136-145)
--- NOTE | 2020-03-12 05:21 | NUR ---
SHIFT SUMMARY PT A&O X 3; DENIES CHEST PAIN; VSS; NSR NOTED ON TELE DURATION OF SHIFT; O2 SATS >93 ON RA; PT MORE INVOLVED W/ CARE THIS SHIFT; NO ACUTE CHANGES; PT CURRENTLY SLEEPING; CALL LIGHT IN REACH; BED IN LOWEST POSITION; WILL CONTINUE TO MONITOR UNTIL HAND OFF TO DAY SHIFT RN.
--- NOTE | 2020-03-12 07:16 | NUR ---
UPDATE TO SEE PT; AM LAB POTASSIUM 2.9; NEW ORDERS GIVEN
--- NOTE | 2020-03-12 09:13 | NUR ---
ASSUMED CARE AT 0700, REPORT FROM MISA FUENTES. RESTING SUPINE IN BED. A/A/OX4 AT THIS TIME. STATES IS FEELING MUCH BETTER. IV POTASSIUM INFUSING, WEARING ATTENDS FOR INCONTINANCE, LEFT TESTICLE SWOLLEN, UNCHANGED FROM YESTERDAY PER ALFREDO. WILL CONTINUE TO MONITOR.
--- NOTE | 2020-03-12 09:33 | NUR ---
XFER SUMMARY: Rpt provided to accepting RN. Pt will xfer accompanied by PCT, belongings/meds packed for xfer to medical unit.
--- NOTE | 2020-03-12 10:29 | NUR ---
PATIENT TRANSFERRED FROM PCU 10 TO ROOM 326. REPORT RECEIVED FROM MISA YADAV. VSS, ON RA. ORIENTED TO ROOM AND USE OF CALL LIGHT. PATIENT DENIES ANY PAIN. SR ON TELE. FALL PRECAUTIONS IN PLACE PER UNIT PROTOCOL.
--- NOTE | 2020-03-12 17:57 | NUR ---
PATIENT A/OX4, UP WITH FWW AND 1 ASSIST TO BSC/CHAIR. PT/OT ORDERED AND ARE RECOMMENDING SNF AT D/C. SON WOULD LIKE [facility]. VSS, ON RA. NSR ON TELE IN THE 60'S, DENIES ANY CP OR SOB. PATIENT NEEDS ENCOURAGEMET TO GET UP TO CHAIR FOR MEALS AND APPETITE IS POOR. SLEPT THE MAJORITY OF THIS SHIFT. K+ 2.9 THIS AM AND WAS REPLACED. L EYE BLINDNESS, NEEDS ASSISTANCE SETTING UP TRAY. 2 IV SITES TO L HAND AND L AC WNL. NS @50ML/HR INFUSING. PATIENT DOES NOT USE CALL LIGHT, BUT WILL HOLLER OUT FOR HELP. FALL PRECAUTIONS PER UNIT PROTOCOL.
--- NOTE | 2020-03-13 04:57 | NUR ---
SHIFT SUMMARY AOX4. VSS. TELE RUNNING NSR HR 79. BLIND IN L EYE. DENIES PAIN OR N/V. REPORTS HE "ALWAYS" FEELS SOB, HAS OCCASIONAL MOIST SOUNDING COUGH, STATES SMALL AMOUNT "PHLEGM." LUNGS SOUND DIM T/O. HAS URGENCY & FREQUENCY W/VOIDING, VOIDED ROUGHLY 10 TIMES W/50-100ML EACH VOID, POST VOID BLADDER SCAN SHOWED 20ML IN BLADDER. AWAITING PLACEMENT. CALL LIGHT IN REACH, HOWEVER PT YELLS OUT WHEN HE NEEDS ASSISTANCE. WCTM.
[2020-03-13 05:35] LABS: Hematocrit 23.6 % (37.0-53.0); Hemoglobin 7.6 g/dL (13.5-17.5)
[2020-03-13 06:13] LABS: Anion Gap 9 mmol/L (6-16); Blood Urea Nitrogen 38 mg/dL (8-24); Bun/Creatinine Ratio 24.1 (12.0-20.0); CO2, Blood 22 mmol/L (21-32); Calcium, Blood 7.4 mg/dL (8.5-10.1); Chloride, Blood 111 mmol/L (98-108); Creatinine, Blood 1.58 mg/dL (0.60-1.20); Glomerular Filtration Rate 45 (60-); Glucose, Blood 104 mg/dL (70-99); Phosphorus, Blood 2.1 mg/dL (2.5-4.9); Potassium, Blood 2.7 mmol/L (3.5-5.5); Sodium, Blood 142 mmol/L (136-145)
[2020-03-13] MEDS ORDERED: CLOB.05TO TOP (10:18)
[2020-03-13] MEDS ORDERED: MELATONIN10 M1 PO (10:21)
[2020-03-13] MEDS ORDERED: [UNRECOGNIZED DRUG - OTHER] PO (10:50)
[2020-03-13] MEDS ORDERED: ASCO500 PO (10:51)
[2020-03-13] MEDS ORDERED: OCUVITE ADULT1 EAC2 PO (10:51)
[2020-03-13] MEDS ORDERED: Vitamin D2000 UNIT PO (10:51)
--- NOTE | 2020-03-13 17:58 | NUR ---
PATIENT A/OX4, UP WITH 1 ASSIST TO CHAIR/BSC. PATIENT FEELING BETTER TODAY. STILL REQUIRES ENCOURAGEMENT TO GET OOB, BUT WAS STRONGER WITH TRASNFERS. VSS, ON RA. NEEDS MANY VERBAL QUES WITH TRANSFERS DUE TO BLIDNESS. NEEDS ASSISTANCE SETTING UP MEAL TRAY, BUT CAN FEED HIMSELF. POTASSIUM 2.7 THIS AM AND WAS REPLACED. CONT OF URINE WITH URGENCY AND FREQUENCY. CALLS APPROPRIATELY FOR ASSISTANCE. WILL NEED RAPID COVID TEST TOMORROW TO DC TO [facility]. APPETITE GETTING A LITTLE BETTER TODAY. DENIES ANY NAUSEA OR ABD PAIN.
--- NOTE | 2020-03-14 05:18 | NUR ---
SHIFT SUMMARY PT PLEASANT AND COOPERATIVE. PT IS MOSTLY BLIND SO HE DOES YELL OUT AT TIMES WHEN HE CANNOT LOCATE HIS CALL LIGHT AND NEEDS ASSISTANCE. PT GETS UP JUST A 1 ASSIST TO THE BSC OR THE RESTROOM. TIRES EASILY. PT WAS VOIDING FREQUENTLY AND WITH URGENCY AND HAVING DIFFICULTY DOING IT WITHOUT ASSISTANCE. CLOTH DOFFER SPOKE TO PT ABOUT CONDOM CATH AN OPTION AND PT WAS AGREEABLE. CONDOM CATH REMAINED ON THROUGHOUT THE NIGHT. POTASSIUM PHOSPHATE INFUSED. TELEMETRY ON AND READING SR 75. NO COMPLAINTS OF PAIN. 1 SMALL BM TONIGHT. VITAL SIGNS STABLE. WILL CONTINUE TO MONITOR AND REPORT TO DAY RN.
[2020-03-14 05:37] LABS: Bun/Creatinine Ratio 20.8 (12.0-20.0); Calcium, Blood 7.3 mg/dL (8.5-10.1); Creatinine, Blood 1.44 mg/dL (0.60-1.20); Potassium, Blood 3.3 mmol/L (3.5-5.5)
[2020-03-14 08:21] LABS: BASOPHILS ABSOLUTE AUTO 0.02 K/mm3 (0.00-0.23); BASOPHILS PERCENT AUTO 1 % (0-2); EOSINOPHILS ABSOLUTE AUTO 0.06 K/mm3 (0.00-0.68); EOSINOPHILS PERCENT AUTO 2 % (0-6); Hematocrit 25.1 % (37.0-53.0); IMMATURE GRAN ABSOLUTE AUTO 0.09 K/mm3 (0.00-0.10); IMMATURE GRAN PERCENT AUTO 3 % (0-1); LYMPHOCYTES ABSOLUTE AUTO 0.39 K/mm3 (0.84-5.20); LYMPHOCYTES PERCENT AUTO 15 % (21-46); MONOCYTES ABSOLUTE AUTO 0.09 K/mm3 (0.16-1.47); MONOCYTES PERCENT AUTO 3 % (4-13); Mean Corpuscular HGB Conc 31.9 g/dL (31.5-36.5); Mean Corpuscular Volume 100 fL (80-100); Mean Platelet Volume 12.7 fL (9.1-12.4); NEUTROPHILS ABSOLUTE AUTO 2.04 K/mm3 (1.96-9.15); NEUTROPHILS PERCENT AUTO 76 % (41-73); Platelet Count 91 K/mm3 (150-400); RDW Coefficient Variation 16.4 % (11.7-14.2); RDW Standard Deviation 60.3 fL (35.1-46.3); White Blood Cell Count 2.69 K/mm3 (4.00-11.30)
--- NOTE | 2020-03-14 17:22 | NUR ---
SHIFT SUMMARY- PT IS A/O PLESANT AND COOPERATIVE. HE WORKED WITH PT AND OT. HIS APPETITE IS POOR, HE IS DRINKING WELL. HE WORKED WITH PT TODAY. HE TOOK A SHOWER THIS MORNING. HIS K IS STILL LOW AND HE RECIEVED IV K, AND AN EXTRA DOSE OF ORAL. PENDING DX TOMORROW LONG HE REMAINS AFEBRILE.
[2020-03-15 05:19] LABS: Hematocrit 25.5 % (37.0-53.0); Hemoglobin 8.1 g/dL (13.5-17.5)
[2020-03-15 05:36] LABS: Albumin, Blood 1.8 g/dL (3.4-5.0); Anion Gap 8 mmol/L (6-16); Blood Urea Nitrogen 26 mg/dL (8-24); Bun/Creatinine Ratio 19.5 (12.0-20.0); CO2, Blood 21 mmol/L (21-32); Calcium, Blood 7.2 mg/dL (8.5-10.1); Chloride, Blood 114 mmol/L (98-108); Creatinine, Blood 1.33 mg/dL (0.60-1.20); Glomerular Filtration Rate 55 (60-); Glucose, Blood 103 mg/dL (70-99); Magnesium, Blood 1.9 mg/dL (1.6-2.4); Phosphorus, Blood 2.6 mg/dL (2.5-4.9); Potassium, Blood 3.4 mmol/L (3.5-5.5); Sodium, Blood 143 mmol/L (136-145)
--- NOTE | 2020-03-15 06:32 | NUR ---
SHIFT SUMMARY PATIENT EXPERIENCED SOME CONFUSION OVERNIGHT, BUT WAS ALERT AND ORIENTED FOR THE MOST PART. PATIENT WAS EXPERIENCING BOTH FREQUENCY AND URGENCY OVERNIGHT. WAS UNABLE TO GET MUCH SLEEP. IV'S PATENT AND FLUSHED. BED IN LOWEST POSITION WITH WHEELS LOCKED. CALL LIGHT WITHIN REACH. REPORT GIVEN TO ONCOMING RN.
--- NOTE | 2020-03-15 17:08 | NUR ---
PT AOX3-4 MILD CONFUSION AT TIMES AND COOPERTIVE OF CARE. PT HAS BEEN SLEEPING A LOT TODAY AND DENIES ANY PAIN AT THIS TIME. PT HAS BEEN SLEEPING A LOT TODAY AND IS A ONE PERSON WITH GAIT BELT AND WALKER. CALL LIGHT WITHIN REACH WILL CONTINUE TO MONITOR.
[2020-03-16 04:59] LABS: Hematocrit 25.1 % (37.0-53.0); Hemoglobin 7.9 g/dL (13.5-17.5); Mean Corpuscular HGB 32.1 pg (26.0-34.0); Mean Corpuscular HGB Conc 31.5 g/dL (31.5-36.5); Mean Corpuscular Volume 102 fL (80-100); Mean Platelet Volume 12.7 fL (9.1-12.4); Platelet Count 119 K/mm3 (150-400); RDW Coefficient Variation 16.4 % (11.7-14.2); RDW Standard Deviation 62.1 fL (35.1-46.3); Red Blood Cell Count 2.46 M/mm3 (4.30-5.90); White Blood Cell Count 2.26 K/mm3 (4.00-11.30)
[2020-03-16 05:12] LABS: Albumin, Blood 1.7 g/dL (3.4-5.0); Anion Gap 6 mmol/L (6-16); Blood Urea Nitrogen 25 mg/dL (8-24); Bun/Creatinine Ratio 20.3 (12.0-20.0); CO2, Blood 23 mmol/L (21-32); Calcium, Blood 7.5 mg/dL (8.5-10.1); Chloride, Blood 114 mmol/L (98-108); Creatinine, Blood 1.23 mg/dL (0.60-1.20); Glomerular Filtration Rate 60 (60-); Glucose, Blood 111 mg/dL (70-99); Magnesium, Blood 2.1 mg/dL (1.6-2.4); Potassium, Blood 3.6 mmol/L (3.5-5.5); Sodium, Blood 143 mmol/L (136-145)
[2020-03-16 05:54] LABS: BASOPHILS PERCENT MAN 0 % (0-2); EOSINOPHILS ABSOLUTE MAN 0.11 K/mm3 (0.00-0.68); EOSINOPHILS PERCENT MAN 5 % (0-6); LYMPHOCYTES ABSOLUTE MAN 0.56 K/mm3 (0.84-5.20); LYMPHOCYTES PERCENT MAN 25 % (21-46); MONOCYTES ABSOLUTE MAN 0.22 K/mm3 (0.16-1.47); MONOCYTES PERCENT MAN 10 % (4-13); NEUTROPHILS ABSOLUTE MAN 1.35 K/mm3 (1.96-9.15); SEG NEUTROPHILS PERCENT MAN 60 % (41-73); TOTAL CELLS COUNTED 100
--- NOTE | 2020-03-16 07:12 | NUR ---
SHIFT SUMMARY PATIENT HAD NO FEVER OVERNIGHT. HAD SOME SORTNESS OF BREATH UPON EXERTION. CONDOM CATHETER PLACED OVERNIGHT AT PATIENT'S REQUEST TO HELP HIM GET BETTER SLEEP. IVS PATENT AND FLUSHED. BED IN LOWEST POSITION WITH WHEELS LOCKED. CALL LIGHT WITHIN REACH. REPORT GIVEN TO ONCOMING RN.
[2020-03-16] MEDS ORDERED: CEFTRIAXON1 GM/50 M1 PO (14:34)
[2020-03-16] MEDS ORDERED: MIDO5 PO (14:37)
[2020-03-16] MEDS ORDERED: SPIR25 PO (14:38)
[2020-03-16] MEDS ORDERED: POTA10T PO (14:38)
--- NOTE | 2020-03-16 14:46 | NUR ---
JUST GAVE REPORT TO [facility] NURSE DOROTHEA FOR REPORT. REPORT GIVEN AND CALL BACK NUMBER GIVEN IN CASE THEY HAVE QUESTIONS. IV HAD TO BE PULLED DUE TO INFILTRATION. DID NOTIFY THE NURSE OF THIS.
--- NOTE | 2020-03-16 15:42 | NUR ---
DISCHARGE SUMMARY NO ACUTE CONCERNS AT THE TIME OF DISCHARGE. PATIENT BELONGINGS SENT WITH HIM TAKEN BY MEDICAL TRANSPORT THROUGH [facility] TO [facility]. IVS REMOVED DUE TO INFILTRATION AND THE [facility] NURSE WAS NOTIFIED OF THIS. HE DOES HAVE IV MEDICATIONS TO ADMINISTER AT [facility]. HE DENIES ANY CONCERN PRIOR TO DISCHARGE.
[2020-03-28 11:10] LABS: ALDOS/RENIN RATIO <1.6 (0.0-30.0); ALDOSTERONE <1.0 ng/dL (0.0-30.0)
== END 2020-03-16 15:46 | DRG 871 ==
LOC: ER 07:00 → PCU 07:01 → MEDS 03-12 10:06 → ENPENDDIS 03-16 12:36 → MEDS 03-16 15:46
PROVIDERS: Emergency Medicine; Family Medicine; Internal Medicine Nephrology; Student in an Organized Health Care Education/Training Program; ADMIT Internal Medicine Endocrinology, Diabetes & Metabolism
DX: A41.51 Sepsis due to Escherichia coli [E. coli] (principal); G92 Toxic encephalopathy; N39.0 Urinary tract infection, site not specified; N17.9 Acute kidney failure, unspecified; E87.2 Acidosis; Z20.828 Contact with and (suspected) exposure to other viral communicable diseases; D61.818 Other pancytopenia; R65.20 Severe sepsis without septic shock; I25.2 Old myocardial infarction; Z95.5 Presence of coronary angioplasty implant and graft; Z98.52 Vasectomy status; Z87.891 Personal history of nicotine dependence; Z66 Do not resuscitate; Z79.82 Long term (current) use of aspirin; E66.3 Overweight; Z68.25 Body mass index [BMI] 25.0-25.9, adult; H54.40 Blindness, one eye, unspecified eye; H35.30 Unspecified macular degeneration; G47.00 Insomnia, unspecified; J44.9 Chronic obstructive pulmonary disease, unspecified; I95.1 Orthostatic hypotension; F41.9 Anxiety disorder, unspecified; E87.6 Hypokalemia; I25.10 Atherosclerotic heart disease of native coronary artery without angina pectoris; D50.9 Iron deficiency anemia, unspecified; E86.9 Volume depletion, unspecified; K40.90 Unilateral inguinal hernia, without obstruction or gangrene, not specified as recurrent; I48.0 Paroxysmal atrial fibrillation; N18.9 Chronic kidney disease, unspecified
CPT/HCPCS: 36415; 71045; 71046; 76770; 78580; 80048; 80053; 80069; 80202; 81001; 82088; 82270; 83605; 83735; 83880; 84132; 84244; 84443; 84484; 85014; 85018; 85025; 85379; 87040; 87077; 87086; 87186; 93005; 93010; 93306; 94760; 96361; 96365; 97110; 97116; 97162; 97166; 97530; 97535; 99285-25; A9270; A9270-GY; A9540; G0378; J0696; J0881; J1650; J2405; J3370; J3480; J7030; J7050; J7060; J7070; J7120; U0002

== ENCOUNTER 2020-06-18 00:24 | Day surgery (SDC) | payer MEDICARE ==
[~2020-06-18 00:24] MED LIST changes: +ACET250 PO; +BETIMOL5 ML LEFTEYE; +CEFTRIAXON1 GM/50 M1 PO; +CLOB.05TO TOP; +FERSU300 PO; +Fludrocortison0.1 MG PO; +LATA.005SO BOTHEYES; +MELATONIN10 M1 PO; +MIDO5 PO; +MONDOXYNE NL100 MG PO; +OCUVITE ADULT1 EAC2 PO; +OMEP20ER PO; +POTA10T PO; +PRED PH-MOXI-BRO5 M1 LEFTEYE; +SPIR25 PO; +SYSTANE 0.3-0.415 ML OP; +Vitamin D2000 UNIT PO; +[UNRECOGNIZED DRUG - OTHER] PO
--- NOTE | 2020-06-18 09:52 | NUR ---
IV LASIX GIVEN PER ORDERS. PT ASSISTED WITH URINAL, VOIDED 200 DARK YELLOW URINE
== END 2020-06-18 10:25 | disposition home or self-care (01) ==
LOC: ATC 00:24
DX: I12.9 Hypertensive chronic kidney disease with stage 1 through stage 4 chronic kidney disease, or unspecified chronic kidney disease (principal); N18.30 Chronic kidney disease, stage 3 unspecified; D63.1 Anemia in chronic kidney disease; N25.81 Secondary hyperparathyroidism of renal origin; E87.6 Hypokalemia; Z79.899 Other long term (current) drug therapy; Z79.82 Long term (current) use of aspirin
CPT/HCPCS: 36415; 36430; 86850; 86900; 86901; 86923; 96374; J1940; J7050; P9016

== ENCOUNTER 2020-08-03 00:34 | Day surgery (SDC) | payer MEDICARE | END 2020-08-03 11:30 | disposition home or self-care (01) | LOC: ATC 00:34 | DX: I12.9 Hypertensive chronic kidney disease with stage 1 through stage 4 chronic kidney disease, or unspecified chronic kidney disease (principal); N18.2 Chronic kidney disease, stage 2 (mild); D63.1 Anemia in chronic kidney disease; E87.6 Hypokalemia; N13.30 Unspecified hydronephrosis; R19.7 Diarrhea, unspecified; Z79.82 Long term (current) use of aspirin; Z79.899 Other long term (current) drug therapy | CPT/HCPCS: 36415; 86850; 86900; 86901; 86923; J7050; P9016 ==

== ENCOUNTER 2020-08-18 14:08 | Inpatient (IN) | payer MEDICARE ==
[~2020-08-18] VITALS: Ht 180.3 cm; Wt 74.1 kg
[~2020-08-18 14:08] MED LIST changes: -BETIMOL5 ML LEFTEYE; -Fludrocortison0.1 MG PO; -LATA.005SO BOTHEYES; -MELATONIN10 M1 PO; -OCUVITE ADULT1 EAC2 PO; -OMEP20ER PO; -POTA10T PO; -Vitamin D2000 UNIT PO; -[UNRECOGNIZED DRUG - OTHER] PO
[2020-08-18 14:23] LABS: Source, Urine Clean Catch
[2020-08-18 14:32] LABS: Appearance, Urine Clear (Clear); Bilirubin, Urine Neg (Neg); Blood, Urine 4+ (Neg); Color, Urine Amber (P-Yellow); Glucose Qualitative, Urine Neg (Neg); Ketones, Urine Neg (Neg); Leukocyte Esterase, Urine 1+ (Neg); Nitrite, Urine Neg (Neg); Protein, Urine 2+ (Neg); Specific Gravity, Urine 1.015 (1.003-1.022); Urobilinogen, Urine NORM (Normal)
[2020-08-18 14:46] LABS: Bacteria Mod /hpf; Mucus Mod (0-Heavy); Squamous Epithelial Cells Rare /hpf (Few)
[2020-08-18 14:47] LABS: Amorphous Mod (0-Heavy)
[2020-08-18 14:47] LABS: BASOPHILS ABSOLUTE AUTO 0.01 K/mm3 (0.00-0.23); BASOPHILS PERCENT AUTO 1 % (0-2); EOSINOPHILS ABSOLUTE AUTO 0.06 K/mm3 (0.00-0.68); EOSINOPHILS PERCENT AUTO 4 % (0-6); Hematocrit 21.9 % (37.0-53.0); Hemoglobin 6.6 g/dL (13.5-17.5); IMMATURE GRAN ABSOLUTE AUTO 0.03 K/mm3 (0.00-0.10); IMMATURE GRAN PERCENT AUTO 2 % (0-1); LYMPHOCYTES ABSOLUTE AUTO 0.65 K/mm3 (0.84-5.20); LYMPHOCYTES PERCENT AUTO 41 % (21-46); MONOCYTES ABSOLUTE AUTO 0.35 K/mm3 (0.16-1.47); MONOCYTES PERCENT AUTO 22 % (4-13); Mean Corpuscular HGB 30.1 pg (26.0-34.0); Mean Corpuscular HGB Conc 30.1 g/dL (31.5-36.5); Mean Corpuscular Volume 100 fL (80-100); NEUTROPHILS PERCENT AUTO 31 % (41-73); Platelet Count 174 K/mm3 (150-400); RDW Coefficient Variation 21.5 % (11.7-14.2); Red Blood Cell Count 2.19 M/mm3 (4.30-5.90)
[2020-08-18 15:10] LABS: Alanine Aminotransfer (ALT/SGP 10 U/L (12-78); Albumin, Blood 3.1 g/dL (3.4-5.0); Albumin/Globulin Ratio 0.7 (0.8-1.8); Alk Phos 56 U/L (50-136); Anion Gap 9 mmol/L (6-16); Aspartate Aminotrans (AST/SGOT 19 U/L (12-37); Bilirubin, Total 0.9 mg/dL (0.1-1.0); Blood Urea Nitrogen 22 mg/dL (8-24); Bun/Creatinine Ratio 22.7 (12.0-20.0); CO2, Blood 23 mmol/L (21-32); Calcium, Blood 8.6 mg/dL (8.5-10.1); Chloride, Blood 110 mmol/L (98-108); Creatinine, Blood 0.97 mg/dL (0.60-1.20); Globulin, Blood 4.2 g/dL (2.2-4.0); Glomerular Filtration Rate >60 (60-); Glucose, Blood 87 mg/dL (70-99); Potassium, Blood 3.7 mmol/L (3.5-5.5); Sodium, Blood 142 mmol/L (136-145); Total Protein, Blood 7.3 g/dL (6.4-8.2)
[2020-08-18 15:22] LABS: International Normalized Ratio 1.07; Prothrombin Time Results 11.4 Sec (9.7-11.5)
[2020-08-18] MEDS ORDERED: IBANDRONATE SO150 MG PO (16:21)
[2020-08-18] MEDS ORDERED: B-121000 MC7 PO (16:22)
[2020-08-18] MEDS ORDERED: POTA10T PO (16:23)
[2020-08-18] MEDS ORDERED: LATA.005SO LEFTEYE (16:24)
[2020-08-18] MEDS ORDERED: ACET250 PO (16:25)
[2020-08-18] MEDS ORDERED: OMEP20ER PO (16:25)
[2020-08-18] MEDS ORDERED: SERT50 PO (16:26)
[2020-08-18] MEDS ORDERED: ROSU10TA PO (16:57)
[2020-08-18] MEDS ORDERED: BETIMOL5 ML LEFTEYE (16:58)
[2020-08-18] MEDS ORDERED: Vitamin D2000 UNIT PO (16:58)
[2020-08-18] MEDS ORDERED: MELATONIN5 M1 PO (17:00)
[2020-08-18] MEDS ORDERED: Fludrocortison0.1 MG PO (17:00)
[2020-08-18] MEDS ORDERED: MIDODRINE HCL10 M1 PO (17:00)
[2020-08-18] MEDS ORDERED: Aspir 8181 MG PO (17:01)
[2020-08-18] MEDS ORDERED: PRESERVISION A1 EACH PO (17:02)
[2020-08-18] MEDS ORDERED: Acidophilus1 EAC1 PO (17:02)
[2020-08-18] MEDS ORDERED: SYSTANE GEL10 GM BOTHEYES (17:03)
[2020-08-18 17:53] LABS: Influenza A, PCR Negative (NEGATIVE); Influenza B, PCR Negative (NEGATIVE); Resp Syncytial Virus, PCR Negative (NEGATIVE); SARS-Cov-2 (COVID-19) PCR, MMC Negative (NEGATIVE)
--- NOTE | 2020-08-18 19:47 | NUR ---
SHIFT SUMMARY PT ARRIVED TO ROOM FROM ED W/ 1 UNIT PRBC INFUSING, A/O X4, VSS, TOLERATING PO AT THIS TIME. PT C/O INCREASED PAIN WHEN HEAD OF BED ELEVATED. PT STATES HE WOULD JUST LIKE AN ENSURE, GAVE FLAVOR OPTIONS AND PROVIDED 3 PER HIS REQUEST. ADMIT CHARTING PENDING, WILL BE COMPLETED BY NOC RN. ORIENTED TO ROOM AND CALL LIGHT, BED IN LOW POSITION, CALL LIGHT IN REACH, REPORT GIVEN TO NOC RN.
--- NOTE | 2020-08-18 23:03 | NUR ---
IN REACH. GOING TO TRY AND SLEEP NOW.
--- NOTE | 2020-08-18 23:09 | NUR ---
ASSUMED CARE AT 1900. PT RESTING IN BED. FIRST UNIT OF BLOOD TRANSFUSING - STARTED IN ED PER DAY SHIFT. PT A/O X4. USING CALL LIGHT. PT DENIES SIGNS OF TRANSFUSION REACTION. SECOND UNIT OF BLOOD STARTED AT ABOUT 2014. VSS. PT HAS SO FAR DENIED SYMPTOMS OF TRANSFUSION REACTION. PT DID HAVE ELEVATED TEMP, HOWEVER ROOM WAS VERY WARM AND PT HAD MULTIPLE BLANKETS ON. ROOM TEMP DECREASED, BLANKET REMOVED, AND PT'S TEMP HAS BEEN TRENDING DOWN SINCE. PT RESTING AT THIS TIME. SECOND UNIT BLOOD IS TRANSFUSING. PT MED FOR PAIN, REPOSITIONED, AND LINENS CHANGED.
[2020-08-19 04:52] LABS: Hematocrit 26.1 % (37.0-53.0); Hemoglobin 8.2 g/dL (13.5-17.5); Mean Corpuscular HGB 30.3 pg (26.0-34.0); Mean Corpuscular HGB Conc 31.4 g/dL (31.5-36.5); Mean Corpuscular Volume 96 fL (80-100); Mean Platelet Volume 10.5 fL (9.1-12.4); Platelet Count 179 K/mm3 (150-400); RDW Coefficient Variation 20.8 % (11.7-14.2); Red Blood Cell Count 2.71 M/mm3 (4.30-5.90); White Blood Cell Count 2.17 K/mm3 (4.00-11.30)
--- NOTE | 2020-08-19 04:56 | NUR ---
SHIFT SUMMARY PT HAS BEEN A/O X4. BEDREST D/T HIP FX. PAIN MANAGED WITH IV PAIN MED PER ORDER; PT HAS BEEN QUITE PAINFUL AND REQUIRING MEDICATION ABOUT EVERY 2-3 HOURS. PT RECIEVED TOTAL OF 2 UNITS OF BLOOD PER ORDER. VSS, DENIES SYMPTOMS OF REACTION. PT HAS BEEN ON RA WITH O2 SAT ABOVE 92%. NPO SINCE MIDNIGHT FOR POSSIBLE SURGERY TODAY. PT RESTING AT THIS TIME WITH CALL LIGHT IN REACH.
[2020-08-19 05:07] LABS: International Normalized Ratio 1.12; Prothrombin Time Results 11.9 Sec (9.7-11.5)
[2020-08-19 05:13] LABS: Alanine Aminotransfer (ALT/SGP 11 U/L (12-78); Albumin, Blood 2.9 g/dL (3.4-5.0); Albumin/Globulin Ratio 0.7 (0.8-1.8); Alk Phos 54 U/L (50-136); Anion Gap 6 mmol/L (6-16); Aspartate Aminotrans (AST/SGOT 18 U/L (12-37); Bilirubin, Total 1.8 mg/dL (0.1-1.0); Blood Urea Nitrogen 23 mg/dL (8-24); Bun/Creatinine Ratio 24.2 (12.0-20.0); CO2, Blood 25 mmol/L (21-32); Calcium, Blood 8.5 mg/dL (8.5-10.1); Chloride, Blood 110 mmol/L (98-108); Creatinine, Blood 0.95 mg/dL (0.60-1.20); Globulin, Blood 4.2 g/dL (2.2-4.0); Glomerular Filtration Rate >60 (60-); Glucose, Blood 122 mg/dL (70-99); Potassium, Blood 3.9 mmol/L (3.5-5.5); Sodium, Blood 141 mmol/L (136-145); Total Protein, Blood 7.1 g/dL (6.4-8.2)
[2020-08-19 05:39] LABS: BASOPHILS PERCENT MAN 0 % (0-2); EOSINOPHILS ABSOLUTE MAN 0.08 K/mm3 (0.00-0.68); EOSINOPHILS PERCENT MAN 4 % (0-6); LYMPHOCYTES ABSOLUTE MAN 0.86 K/mm3 (0.84-5.20); LYMPHOCYTES PERCENT MAN 40 % (21-46); MONOCYTES ABSOLUTE MAN 0.62 K/mm3 (0.16-1.47); MONOCYTES PERCENT MAN 29 % (4-13); NEUTROPHILS ABSOLUTE MAN 0.58 K/mm3 (1.96-9.15); SEG NEUTROPHILS PERCENT MAN 27 % (41-73); TOTAL CELLS COUNTED 100
--- NOTE | 2020-08-19 19:19 | NUR ---
SHIFT SUMMARY PT A&OX4, VSS, S/P L JORGE HIP, BULKY DRESSING CDI, POLAR ROLDAN ON, WIGGLES TOES/MOVES FEET, DENIES N&T IN ALL EXT'S. DENIES PAIN SINCE RETURN FROM PACU. DENIES N&V, ALEXX PO. CONDOM CATHETER, VOIDING WELL. PT WAS UPSET AFTER RETURN FROM PACU; REEMA CORREA CAME IN TO SPEND TIME WITH PT POST-OP WHICH CALMED PT; WHEN SON LEFT PT WAS FINE IN ROOM, ABLE TO EAT DINNER, AND GO TO SLEEP. REPORT PROVIDED TO PATSY BYNUM.
--- NOTE | 2020-08-19 21:48 | NUR ---
ASSUMED CARE AT 1900. PT A/OX4. DENIES PAIN. REPOSITIONED IN BED. REQUESTED PM MEDS EARLY SO HE COULD SLEEP. IV FLUIDS INFUSING PER ORDERS. CONDOM CATH IN PLACE, CALL LIGHT IN REACH.
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
[2020-08-20 04:13] LABS: BASOPHILS ABSOLUTE AUTO 0.04 K/mm3 (0.00-0.23); BASOPHILS PERCENT AUTO 1 % (0-2); EOSINOPHILS PERCENT AUTO 0 % (0-6); Hematocrit 22.1 % (37.0-53.0); Hemoglobin 6.6 g/dL (13.5-17.5); IMMATURE GRAN ABSOLUTE AUTO 0.16 K/mm3 (0.00-0.10); IMMATURE GRAN PERCENT AUTO 5 % (0-1); LYMPHOCYTES ABSOLUTE AUTO 0.43 K/mm3 (0.84-5.20); LYMPHOCYTES PERCENT AUTO 15 % (21-46); MONOCYTES ABSOLUTE AUTO 0.99 K/mm3 (0.16-1.47); MONOCYTES PERCENT AUTO 33 % (4-13); Mean Corpuscular HGB 29.3 pg (26.0-34.0); Mean Corpuscular HGB Conc 29.9 g/dL (31.5-36.5); Mean Corpuscular Volume 98 fL (80-100); Mean Platelet Volume 10.3 fL (9.1-12.4); NEUTROPHILS ABSOLUTE AUTO 1.35 K/mm3 (1.96-9.15); NEUTROPHILS PERCENT AUTO 46 % (41-73); Platelet Count 152 K/mm3 (150-400); RDW Coefficient Variation 20.7 % (11.7-14.2); RDW Standard Deviation 71.7 fL (35.1-46.3); Red Blood Cell Count 2.25 M/mm3 (4.30-5.90); White Blood Cell Count 2.97 K/mm3 (4.00-11.30)
[2020-08-20 04:29] LABS: Anion Gap 7 mmol/L (6-16); Blood Urea Nitrogen 28 mg/dL (8-24); Bun/Creatinine Ratio 23.9 (12.0-20.0); CO2, Blood 23 mmol/L (21-32); Chloride, Blood 109 mmol/L (98-108); Creatinine, Blood 1.17 mg/dL (0.60-1.20); Glomerular Filtration Rate >60 (60-); Glucose, Blood 135 mg/dL (70-99); Magnesium, Blood 1.8 mg/dL (1.6-2.4); Potassium, Blood 3.7 mmol/L (3.5-5.5); Sodium, Blood 139 mmol/L (136-145)
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
[2020-08-20 10:22] LABS: Hematocrit 23.6 % (37.0-53.0); Hemoglobin 7.4 g/dL (13.5-17.5)
--- NOTE | 2020-08-20 16:31 | NUR ---
08/20/20 1631 Jenny Russo VERIFICATIONS: EDIT CHART.
--- NOTE | 2020-08-20 18:24 | NUR ---
SUMMARY NO ACUTE CHANGES T/O SHIFT. THERAPY ATTEMPTED TO SIT PT UP ON EDGE OF BED, TOO PAINFUL. PT DENIES NEED FOR PAIN MEDS AT THIS TIME. PT NEEDS ASSISTANCE W/EATING DUE TO BEING LEGALLY BLIND (COMPLETELY BLIND IN L EYE). TAKING FLUIDS. SONS IN TO SEE PT THIS SHIFT. PT WAS CONFUSED THIS MORNING BUT SEEMS TO CLEAR DAY PROGRESSED. BED ALARM ON FOR SAFETY. CALL LIGHT IN REACH.
--- NOTE | 2020-08-21 03:04 | NUR ---
SHIFT SUMMARY: POD 2 LEFT HIP REPAIR PT HAS BEEN ALERT AND ORIENTED X3-4 WHILE AWAKE. HE CAN BE CONFUSED BUT IS EASILY REORIENTED. HE CAN ALSO BE CONFUSED WHEN WOKEN UP SUDDENLY. VS ARE WNL AND HE IS ON RA. BED ALARM IS IN PLACE. PT HAS BEEN REPOSITIONED Q2H IN BED. ATTENDS ARE IN PLACE AND HAS BEEN CHANGED TWICE. HE ATTEMPTS TO USE URNAL BUT MISSES THE URNAL OR URINATES A SMALL AMOUNT. A MEPILEX WAS PUT ON HIS BOTTOM A PRECAUTION. HIS PAIN HAS BEEN CONTROLLED WITH TYLENOL. PT RECIEVED A UNIT OF BLOOD YESTERDAY AND WILL BE HAVING LABS DRAWN THIS MORNING. SINCE PT IS LEGALLY BLIND IN ONE EYE DOESN'T LIKE TO USE THE CALL LIGHT WHEN NEEDING SOMETHING. HE USUALLY CALLS OUT INTO THE [facility] WAY WHEN AWAKE. THE PLAN IS TO WORK WITH PT/OT AND PAIN MANAGEMENT.
[2020-08-21 05:57] LABS: Hematocrit 22.4 % (37.0-53.0); Hemoglobin 6.9 g/dL (13.5-17.5); Mean Corpuscular HGB Conc 30.8 g/dL (31.5-36.5); Mean Corpuscular Volume 97 fL (80-100); Mean Platelet Volume 11.6 fL (9.1-12.4); Platelet Count 140 K/mm3 (150-400); RDW Coefficient Variation 19.8 % (11.7-14.2); RDW Standard Deviation 67.4 fL (35.1-46.3); White Blood Cell Count 2.24 K/mm3 (4.00-11.30)
[2020-08-21 06:19] LABS: Alanine Aminotransfer (ALT/SGP 7 U/L (12-78); Albumin, Blood 2.3 g/dL (3.4-5.0); Albumin/Globulin Ratio 0.6 (0.8-1.8); Alk Phos 52 U/L (50-136); Anion Gap 6 mmol/L (6-16); Aspartate Aminotrans (AST/SGOT 18 U/L (12-37); BAND PERCENT MAN 9 % (0-8); BASOPHILS PERCENT MAN 0 % (0-2); Bilirubin, Total 1.3 mg/dL (0.1-1.0); Blood Urea Nitrogen 32 mg/dL (8-24); Bun/Creatinine Ratio 26.9 (12.0-20.0); CO2, Blood 23 mmol/L (21-32); Chloride, Blood 109 mmol/L (98-108); Creatinine, Blood 1.19 mg/dL (0.60-1.20); EOSINOPHILS ABSOLUTE MAN 0.08 K/mm3 (0.00-0.68); EOSINOPHILS PERCENT MAN 4 % (0-6); Glomerular Filtration Rate >60 (60-); Glucose, Blood 109 mg/dL (70-99); LYMPHOCYTES ABSOLUTE MAN 0.64 K/mm3 (0.84-5.20); LYMPHOCYTES PERCENT MAN 29 % (21-46); MONOCYTES ABSOLUTE MAN 0.53 K/mm3 (0.16-1.47); MONOCYTES PERCENT MAN 24 % (4-13); NEUTROPHILS ABSOLUTE MAN 0.96 K/mm3 (1.96-9.15); Potassium, Blood 3.4 mmol/L (3.5-5.5); SEG NEUTROPHILS PERCENT MAN 34 % (41-73); Sodium, Blood 138 mmol/L (136-145); TOTAL CELLS COUNTED 100; Total Protein, Blood 6.3 g/dL (6.4-8.2)
--- NOTE | 2020-08-21 18:06 | NUR ---
SHIFT SUMMARY POD2 POSTERIOR HIP FX REPAIR, A/O X4, VSS, UP TO CHAIR TODAY W/ THERYAPY/GB/FWW/1 PERSON ASSIST, AMBULATED 10 FEET, TOLERATING PO, VOIDING IN URINAL W/ DEPENDS IN PLACE. HGB BELOW 7, INFUSED 2 UNITS PRBC W/ CBC ORDERED FOR AM LABS, PT TOLERATED TRANSFUSION WELL, 2ND UNIT TO BE COMPLETED ON NOC SHIFT. CALL LIGHT IN REACH, WILL CONTINUE TO MONITOR AND REPORT TO ONCOMING NOC RN.
[2020-08-22 04:44] LABS: BASOPHILS ABSOLUTE AUTO 0.03 K/mm3 (0.00-0.23); BASOPHILS PERCENT AUTO 2 % (0-2); EOSINOPHILS ABSOLUTE AUTO 0.05 K/mm3 (0.00-0.68); EOSINOPHILS PERCENT AUTO 3 % (0-6); Hematocrit 25.3 % (37.0-53.0); Hemoglobin 8.1 g/dL (13.5-17.5); IMMATURE GRAN ABSOLUTE AUTO 0.09 K/mm3 (0.00-0.10); IMMATURE GRAN PERCENT AUTO 5 % (0-1); LYMPHOCYTES ABSOLUTE AUTO 0.54 K/mm3 (0.84-5.20); LYMPHOCYTES PERCENT AUTO 27 % (21-46); MONOCYTES ABSOLUTE AUTO 0.49 K/mm3 (0.16-1.47); MONOCYTES PERCENT AUTO 24 % (4-13); Mean Corpuscular Volume 94 fL (80-100); Mean Platelet Volume 11.2 fL (9.1-12.4); NEUTROPHILS ABSOLUTE AUTO 0.81 K/mm3 (1.96-9.15); NEUTROPHILS PERCENT AUTO 40 % (41-73); Platelet Count 146 K/mm3 (150-400); RDW Coefficient Variation 20.2 % (11.7-14.2); RDW Standard Deviation 66.5 fL (35.1-46.3); White Blood Cell Count 2.01 K/mm3 (4.00-11.30)
--- NOTE | 2020-08-22 05:08 | NUR ---
SHIFT SUMMARY POD 3 L HIP FX REPAIR AA0X4. PT REPORTS SMALL AMOUNT OF PAIN REQUESTED TYLENOL AND STATED RELIEF WITH THAT. DRESSING CDI. PT ROLLS IN BED AND ASSISTS WITH ADL'S CALLS APPROPRIATLY FOR URINAL, CONT DURING SHIFT. TOLERATING PO WELL. PLAN IS TO POSSIBLY DC DURING SHIFT PENDING LABS.
[2020-08-22 05:39] LABS: BAND PERCENT MAN 3 % (0-8); BASOPHILS PERCENT MAN 0 % (0-2); EOSINOPHILS ABSOLUTE MAN 0.06 K/mm3 (0.00-0.68); EOSINOPHILS PERCENT MAN 3 % (0-6); LYMPHOCYTES ABSOLUTE MAN 0.56 K/mm3 (0.84-5.20); LYMPHOCYTES PERCENT MAN 28 % (21-46); METAMYELOCYTE ABSOLUTE MAN 0.08 K/mm3 (0.00-0.00); METAMYELOCYTE PERCENT MAN 4 % (0-0); MONOCYTES ABSOLUTE MAN 0.32 K/mm3 (0.16-1.47); MONOCYTES PERCENT MAN 16 % (4-13); NEUTROPHILS ABSOLUTE MAN 0.98 K/mm3 (1.96-9.15); SEG NEUTROPHILS PERCENT MAN 46 % (41-73); TOTAL CELLS COUNTED 100
--- NOTE | 2020-08-22 07:34 | NUR ---
PT REPORTS LEGALLY BLIND IN ONE EYE, REPORTS ABLE TO EAT AND DRINK WITHOUT DIFFICULTY.
--- NOTE | 2020-08-22 10:25 | NUR ---
DR MENDEZ REPORTS RECENTLY SEEING PT, DISCUSSED PT'S STATUS.
--- NOTE | 2020-08-22 11:28 | NUR ---
THERAPY IN ROOM.
[2020-08-22 12:04] LABS: Influenza A, PCR Negative (NEGATIVE); Influenza B, PCR Negative (NEGATIVE); Resp Syncytial Virus, PCR Negative (NEGATIVE); SARS-Cov-2 (COVID-19) PCR, MMC Negative (NEGATIVE)
--- NOTE | 2020-08-22 13:06 | NUR ---
PT ASSISTED WITH GETTING DRESSED. PT UP IN CHAIR. PT VOIDED.
--- NOTE | 2020-08-22 13:50 | NUR ---
DISCHARGE: PT EATING AND DRINKING, VOIDING, HAD BM. VSS. PT BEING DISCHARGED TO [facility] PT DRESSED IN HIS CLOTHES. PT OUT BY TRANSPORT IN W/C WITH BELONGINGS, PAPERWORK WITH TRANSPORT INCLUDING SCRIPT. KEYING MACHINE OPERATOR ASSISTED WITH DISCHARGE.
--- NOTE | 2020-08-22 14:25 | NUR ---
REPORT GIVEN TO BASILIO AT [facility]
== END 2020-08-22 13:45 | disposition home or self-care (01) | DRG 522 ==
LOC: ER 14:08 → SURS 17:32
PROVIDERS: Emergency Medicine; Internal Medicine; Orthopaedic Surgery; ADMIT Family Medicine
PROC: 0SRS0JA Replacement of Left Hip Joint, Femoral Surface with Synthetic Substitute, Uncemented, Open Approach (ICD-10-PCS; principal; 2020-08-19 12:15)
PROC: 30233N1 Transfusion of Nonautologous Red Blood Cells into Peripheral Vein, Percutaneous Approach (ICD-10-PCS; 2020-08-20)
DX: S72.002A Fracture of unspecified part of neck of left femur, initial encounter for closed fracture (principal); D62 Acute posthemorrhagic anemia; D61.818 Other pancytopenia; E78.5 Hyperlipidemia, unspecified; Z20.828 Contact with and (suspected) exposure to other viral communicable diseases; I25.10 Atherosclerotic heart disease of native coronary artery without angina pectoris; J44.9 Chronic obstructive pulmonary disease, unspecified; D50.9 Iron deficiency anemia, unspecified; I95.1 Orthostatic hypotension; I71.4 Abdominal aortic aneurysm, without rupture; H54.62 Unqualified visual loss, left eye, normal vision right eye; W19.XXXA Unspecified fall, initial encounter; Z79.82 Long term (current) use of aspirin; I25.2 Old myocardial infarction; Z87.891 Personal history of nicotine dependence; Z95.5 Presence of coronary angioplasty implant and graft
CPT/HCPCS: 0241U; 36415; 36430; 64450; 71045; 72170; 73502; 80048; 80053; 81001; 83735; 85014; 85018; 85025; 85610; 85730; 86850; 86900; 86901; 86923; 87086; 88305; 88311; 93005; 93010; 94640; 94760; 94762; 97110; 97162; 97165; 97530; 97535; 99285-25; A9270; A9270-GY; C1776; J0171; J0690; J0735; J1100; J1170; J1885; J2060; J2370; J2405; J2704; J2795; J3010; J3370; J7030; J7050; J7120; P9016

== ENCOUNTER 2020-09-06 13:05 | Day surgery (SDC) | payer MEDICARE ==
[~2020-09-06 13:05] MED LIST changes: +Acidophilus1 EAC1 PO; +Aspir 8181 MG PO; +B-121000 MC7 PO; +BETIMOL5 ML LEFTEYE; +CIPR250 PO; +Fludrocortison0.1 MG PO; +IBANDRONATE SO150 MG PO; +MELATONIN5 M1 PO; +MIDODRINE HCL10 M1 PO; +OMEP20ER PO; +POTA10T PO; +ROSU10TA PO; +SYSTANE GEL10 GM BOTHEYES; +Vitamin D2000 UNIT PO
[2020-09-06] MEDS ORDERED: MULTIPLE VITAM1 EACH PO (14:01)
[2020-09-06] MEDS ORDERED: GENTEAL TEARS3.5 GM BOTHEYES (14:06)
[2020-09-06] MEDS ORDERED: DOCU100 PO (14:25)
[2020-09-06] MEDS ORDERED: SENN187 PO (14:26)
[2020-09-06] MEDS ORDERED: ACET325 PO (14:28)
[2020-09-06] MEDS ORDERED: METO5A PO (14:33)
[2020-09-06] MEDS ORDERED: HYDROCODONE-AC1 EAC5 PO (14:33)
--- NOTE | 2020-09-06 19:19 | NUR ---
DISCHARGE NOTE PT IS AO. PT RECIEVED ONE UNIT PRBC ORDERED. PT IV REMOVED BY THIS RN. PT ASSISTED WITH URINAL X2 DURING STAY WITH 200ML OUTPUT. PT RECIEVED 370 ML PARENTERAL FLUIDS FROM TRANSFUSION DURING STAY. PT ATE DINNER PRIOR TO DC AND CONSUMED APPROXIMATELY 30%. PT ASSISTED INTO WHEELCHAIR BY JUNIOR SYSTEMS ANALYST AND LEFT IN HOME WHEELCHAIR WITH [facility] AT APPROXIMATELY 1645.
== END 2020-09-06 18:48 ==
LOC: TRN 13:05 → MEDS 13:06 → ATC 13:30 → TRN 18:48
DX: D61.818 Other pancytopenia (principal); I10 Essential (primary) hypertension; E78.00 Pure hypercholesterolemia, unspecified; E78.5 Hyperlipidemia, unspecified; Z79.82 Long term (current) use of aspirin; Z87.891 Personal history of nicotine dependence; Z79.899 Other long term (current) drug therapy
CPT/HCPCS: 86850; 86900; 86901; 86923; J7050; P9016

== ENCOUNTER 2020-12-24 00:42 | Day surgery (SDC) | payer MEDICARE ==
[~2020-12-24 00:42] MED LIST changes: +GENTEAL TEARS3.5 GM BOTHEYES; +HYDROCODONE-AC1 EAC5 PO; +METO5A PO; +MULTIPLE VITAM1 EACH PO; +SENN187 PO
[2020-12-24 14:51] LABS: Performing Lab BLOODWORKS; Test Name ABID
[2020-12-24] MEDS ORDERED: ASCO500 PO (15:44)
--- NOTE | 2020-12-24 15:47 | NUR ---
OLAMIDE IN BLOOD BANK REQUESTING 2 PINK TOP TUBES TO BE DRAWN PRIOR TO PT'S TRANSFUSION TODAY.
== END 2020-12-24 17:21 | disposition home or self-care (01) ==
LOC: ATC 00:42
PROVIDERS: Internal Medicine Nephrology
DX: I12.9 Hypertensive chronic kidney disease with stage 1 through stage 4 chronic kidney disease, or unspecified chronic kidney disease (principal); N18.9 Chronic kidney disease, unspecified; D63.1 Anemia in chronic kidney disease; N25.81 Secondary hyperparathyroidism of renal origin; Z79.82 Long term (current) use of aspirin
CPT/HCPCS: 36415; 36430; 86850; 86870; 86900; 86901; 86922; J1940; J7050; P9016

== ENCOUNTER 2021-01-25 14:11 | Emergency (ER) | payer MEDICARE, OTHER ==
[~2021-01-25] VITALS: Ht 182.9 cm; Wt 72.6 kg
[2021-01-25 14:59] LABS: BASOPHILS ABSOLUTE AUTO 0.04 K/mm3 (0.00-0.23); BASOPHILS PERCENT AUTO 1 % (0-2); EOSINOPHILS ABSOLUTE AUTO 0.03 K/mm3 (0.00-0.68); EOSINOPHILS PERCENT AUTO 1 % (0-6); Hematocrit 21.5 % (37.0-53.0); Hemoglobin 6.8 g/dL (13.5-17.5); IMMATURE GRAN ABSOLUTE AUTO 0.18 K/mm3 (0.00-0.10); IMMATURE GRAN PERCENT AUTO 4 % (0-1); LYMPHOCYTES ABSOLUTE AUTO 0.73 K/mm3 (0.84-5.20); LYMPHOCYTES PERCENT AUTO 18 % (21-46); MONOCYTES ABSOLUTE AUTO 1.31 K/mm3 (0.16-1.47); MONOCYTES PERCENT AUTO 31 % (4-13); Mean Corpuscular HGB 30.9 pg (26.0-34.0); Mean Corpuscular HGB Conc 31.6 g/dL (31.5-36.5); Mean Corpuscular Volume 98 fL (80-100); Mean Platelet Volume 11.2 fL (9.1-12.4); NEUTROPHILS ABSOLUTE AUTO 1.89 K/mm3 (1.96-9.15); NEUTROPHILS PERCENT AUTO 45 % (41-73); Platelet Count 137 K/mm3 (150-400); RDW Coefficient Variation 22.3 % (11.7-14.2); RDW Standard Deviation 76.5 fL (35.1-46.3); White Blood Cell Count 4.18 K/mm3 (4.00-11.30)
[2021-01-25 15:17] LABS: Albumin, Blood 3.2 g/dL (3.4-5.0); Albumin/Globulin Ratio 0.7 (0.8-1.8); Bun/Creatinine Ratio 27.6 (12.0-20.0); Calcium, Blood 8.5 mg/dL (8.5-10.1); Creatinine, Blood 1.34 mg/dL (0.60-1.20); Globulin, Blood 4.9 g/dL (2.2-4.0); Potassium, Blood 4.2 mmol/L (3.5-5.5); Total Protein, Blood 8.1 g/dL (6.4-8.2)
[2021-01-25] MEDS ORDERED: IBANDRONATE SO150 MG PO (15:32)
[2021-01-25] MEDS ORDERED: ISTALOL2.5 M2 LEFTEYE (15:32)
[2021-01-25] MEDS ORDERED: LATANOPROST2.5 M3 (15:32)
[2021-01-25] MEDS ORDERED: KLOR-CON 1010 ME2 PO (15:32)
[2021-01-25] MEDS ORDERED: MIDODRINE HCL10 M3 PO (15:33)
[2021-01-25 16:38] LABS: Source, Urine Clean Catch
[2021-01-25 16:44] LABS: Bilirubin, Urine Neg (Neg); Blood, Urine Neg (Neg); Glucose Qualitative, Urine Neg (Neg); Ketones, Urine Neg (Neg); Leukocyte Esterase, Urine 1+ (Neg); Nitrite, Urine Neg (Neg); Protein, Urine 2+ (Neg); Specific Gravity, Urine 1.015 (1.003-1.022); Urobilinogen, Urine NORM (Normal)
[2021-01-25 16:57] LABS: Appearance, Urine Hazy (Clear); Color, Urine Yellow (P-Yellow)
[2021-01-25 16:59] LABS: Bacteria Many /hpf; Red Blood Cells, Urine Not Seen /hpf (0-2); Squamous Epithelial Cells Few /hpf (Few)
[2021-01-25] MEDS ORDERED: CEPH500 PO (17:55)
== END 2021-01-25 18:15 | disposition home or self-care (01) ==
LOC: ER 14:11
PROVIDERS: Physician Assistant
DX: N39.0 Urinary tract infection, site not specified (principal); R41.0 Disorientation, unspecified; E78.5 Hyperlipidemia, unspecified; Z79.82 Long term (current) use of aspirin; Z79.899 Other long term (current) drug therapy; Z91.09 Other allergy status, other than to drugs and biological substances; Z91.040 Latex allergy status; Z87.442 Personal history of urinary calculi; Z87.891 Personal history of nicotine dependence
CPT/HCPCS: 36415; 80053; 81001; 84484; 85025; 87086; 93005; 93010; 96365; 99285-25; J0696

== ENCOUNTER 2021-01-29 09:34 | Emergency (ER) | payer MEDICARE, OTHER ==
[~2021-01-29] VITALS: Ht 182.9 cm; Wt 71.7 kg
[~2021-01-29 09:34] MED LIST changes: +ISTALOL2.5 M2 LEFTEYE; +KLOR-CON 1010 ME2 PO; +LATANOPROST2.5 M3; +MIDODRINE HCL10 M3 PO
[2021-01-29 10:25] LABS: BASOPHILS ABSOLUTE AUTO 0.04 K/mm3 (0.00-0.23); BASOPHILS PERCENT AUTO 1 % (0-2); EOSINOPHILS ABSOLUTE AUTO 0.01 K/mm3 (0.00-0.68); EOSINOPHILS PERCENT AUTO 0 % (0-6); Hemoglobin 6.3 g/dL (13.5-17.5); IMMATURE GRAN ABSOLUTE AUTO 0.22 K/mm3 (0.00-0.10); IMMATURE GRAN PERCENT AUTO 7 % (0-1); LYMPHOCYTES ABSOLUTE AUTO 0.46 K/mm3 (0.84-5.20); LYMPHOCYTES PERCENT AUTO 14 % (21-46); MONOCYTES ABSOLUTE AUTO 0.91 K/mm3 (0.16-1.47); MONOCYTES PERCENT AUTO 28 % (4-13); Mean Corpuscular HGB 30.7 pg (26.0-34.0); Mean Corpuscular HGB Conc 31.5 g/dL (31.5-36.5); Mean Corpuscular Volume 98 fL (80-100); Mean Platelet Volume 11.4 fL (9.1-12.4); NEUTROPHILS ABSOLUTE AUTO 1.58 K/mm3 (1.96-9.15); NEUTROPHILS PERCENT AUTO 49 % (41-73); Platelet Count 124 K/mm3 (150-400); RDW Coefficient Variation 21.7 % (11.7-14.2); RDW Standard Deviation 73.6 fL (35.1-46.3); Red Blood Cell Count 2.05 M/mm3 (4.30-5.90); White Blood Cell Count 3.22 K/mm3 (4.00-11.30)
[2021-01-29 10:42] LABS: Source, Urine Clean Catch
[2021-01-29 10:45] LABS: Albumin, Blood 2.8 g/dL (3.4-5.0); Albumin/Globulin Ratio 0.6 (0.8-1.8); Bilirubin, Total 0.8 mg/dL (0.1-1.0); Bun/Creatinine Ratio 18.2 (12.0-20.0); Creatinine, Blood 1.37 mg/dL (0.60-1.20); Globulin, Blood 4.9 g/dL (2.2-4.0); Potassium, Blood 4.6 mmol/L (3.5-5.5); Total Protein, Blood 7.7 g/dL (6.4-8.2)
[2021-01-29 10:45] LABS: Appearance, Urine Clear (Clear); Bilirubin, Urine Neg (Neg); Blood, Urine 1+ (Neg); Color, Urine Yellow (P-Yellow); Glucose Qualitative, Urine Neg (Neg); Ketones, Urine Neg (Neg); Leukocyte Esterase, Urine 1+ (Neg); Nitrite, Urine Neg (Neg); Protein, Urine 2+ (Neg); Specific Gravity, Urine 1.015 (1.003-1.022); Urobilinogen, Urine NORM (Normal)
[2021-01-29 11:17] LABS: Red Blood Cells, Urine 0-2 /hpf (0-2); Squamous Epithelial Cells Mod /hpf (Few)
[2021-01-29 11:18] LABS: Bacteria Few /hpf
== END 2021-01-29 12:41 | disposition home or self-care (01) ==
LOC: ER 09:34
PROVIDERS: Physician Assistant
DX: R53.1 Weakness (principal); E78.5 Hyperlipidemia, unspecified; Z79.899 Other long term (current) drug therapy; Z79.82 Long term (current) use of aspirin; Z91.09 Other allergy status, other than to drugs and biological substances; Z91.040 Latex allergy status; Z88.8 Allergy status to other drugs, medicaments and biological substances; Z87.442 Personal history of urinary calculi; Z87.891 Personal history of nicotine dependence
CPT/HCPCS: 80053; 81001; 85025; 87086; 99283

== ENCOUNTER 2021-01-29 17:29 | Emergency (ER) | payer MEDICARE, OTHER ==
[~2021-01-29] VITALS: Ht 170.2 cm; Wt 68.0 kg
== END 2021-01-29 18:52 | disposition home or self-care (01) ==
LOC: ER 17:29
DX: S51.812A Laceration without foreign body of left forearm, initial encounter (principal); S20.224A Contusion of middle back wall of thorax, initial encounter; I10 Essential (primary) hypertension; I25.2 Old myocardial infarction; E78.5 Hyperlipidemia, unspecified; Z87.442 Personal history of urinary calculi; Z87.891 Personal history of nicotine dependence; W05.0XXA Fall from non-moving wheelchair, initial encounter
CPT/HCPCS: 99283